=== PATIENT | female | born 1975 | race Caucasian/White ===

== ENCOUNTER 2022-03-01 09:35 | Emergency (ER) | payer BC, SELFPAY ==
[2022-03-01 09:50] VITALS: BP 112/72; PULSE 94; RESP 19; TEMP 36.8; O2SAT 99; BMI 50.2
[2022-03-01 10:25] LABS: Strep Scrn Group A (Rapid) Negative (Negative)
[2022-03-01 10:44] VITALS: BP 112/72; PULSE 94; RESP 19; TEMP 36.8; O2SAT 99
--- NOTE | 2022-03-01 10:48 | HMH.EDUTC ---
[facility] [place] Clinical Impression: Viral syndrome, Exposure to COVID-19 virus Disposition: Home, Self-Care Condition on Discharge: Good Instructions: Sore Throat, DI for COVID-19 (Suspected or Confirmed ), Preventing the Spread of Coronavirus Discharge Instructions Additional Instructions: *Monitor Temp, Over the counter Motrin or Tylenol as directed/as needed Tylenol every 4 hours and Motrin every 6 hours (as long as your family doctor has told you that you can take it) for fever or pain. and straight to ER if unable to lower temp less than 101.0 after medication given *Warm salt water gargles may help to soothe the throat *Throat Lozenges *Warm fluids like tea with honey may help to soothe the throat *Sleep elevated *Humidifier/Vaporizer Your throat swab was sent for culture. Those results are typically sent to your primary care. Be sure to follow up in 2-3 days with your family doctor/primary care physician if no improvement so they can review those result and treat if necessary. If you don?t have a primary care doctor, I recommend you get one but in the mean time, you will have to return to a walk in clinic Follow up IMMEDIATELY for new or worsening symptoms or no Noticeable improvement over the next 48-72 hours. 911 for difficulty breathing or swallowing You were tested for today for COVID19 your test result should be back in the next 24-48 hours, you may Check your results on the [facility] My health portal Make sure to take your Vitamins Vit. C Vit D and Zinc if you can take them Referrals: Provider,Referral, [Primary Care Provider] - As needed Forms: Work/School Release Time of Disposition: 10:58 Medical Decision Making - Rafal Inquiry Pt receiving controlled substance: No Rafal was queried for this patient: No Vital Signs: 03/01/22 09:50 03/01/22 10:44 Temperature 98.2 F 98.2 F Temperature Source Oral Pulse Rate 94 H Pulse Rate [Left Brachial] 94 H Respiratory Rate 19 19 Blood Pressure 112/72 Blood Pressure [Left Arm] 112/72 Blood Pressure Mean [Left Arm] 85 Blood Pressure Source [Left Arm] Automatic Cuff Blood Pressure Position [Left Arm] Sitting 02 Sat by Pulse Oximetry 99 Oxygen Delivery Method Room Air - Lab Data Lab results reviewed: Yes: I reviewed the patient's lab results. Lab Results 03/01/22 09:52: Group A Strep Rapid Negative Orders (Tests/Meds): ORDERS Category Date Time Status Covid-19 Nasal PCR ([facility]) Routine Lab 03/01/22 09:52 Received Strep Screen Confirmation Stat Micro 03/01/22 09:52 [place] [facility] [place] - General Stated complaint: sore throat, weakness, h/a, soa, chills Time Seen by Provider: 03/01/22 10:48 Mode of Arrival: Ambulatory Source of Information: Patient Limitations: No Limitations Description of Symptoms (Recalled from Triage Doc. by RN): PATIENT C/O COUGH, BODY ACHES, SOA, CONGESTION, CHILLS AND HEADACHE. NEEDS A COVID TEST FOR WORK HEENT Symptoms (Recalled from RN notes): Yes Resp Symptoms (Recalled from RN notes): Yes Skin Symptoms (Recalled from RN notes): No MS Symptoms (Recalled from RN notes): No Functional Status (Recalled from RN notes): WNL - History of Present Illness Provider Complaint: Patient states that she was recently around someone that was positive for COVID States that she has been having sore throat, body aches, and chills States that she wanted to come in and get tested for COVID and strep throat - Related Data Home Medications Medication Instructions Recorded Confirmed hydrochlorothiazide 25 mg tablet PO #30 tab 01/12/19 01/12/19 levothyroxine 75 mcg tablet PO #30 tab 01/12/19 01/12/19 lisinopril 5 mg tablet 5 mg PO DAILY 01/12/19 01/12/19 metformin 1,000 mg tablet PO #60 tab 01/12/19 01/12/19 Previous Rx's Medication Instructions Recorded Cefdinir [Omnicef 300mg Capsule] 300 mg PO BID #20 cap 01/16/19 Chlorhexidine Gluconate 237 ml TP BIDP PRN #240 ml 01/16/19 lidocaine HCL [Lidocaine viscous 5
== END 2022-03-01 11:00 | disposition home or self-care (01) ==
PROVIDERS: Emergency Provider Nurse Practitioner
DX: U07.1 COVID-19 (principal); J02.9 Acute pharyngitis, unspecified; R53.1 Weakness; R51.9 Headache, unspecified; R06.02 Shortness of breath; R50.9 Fever, unspecified
CPT/HCPCS: 87430; 99212; C9803; G0463; U0003; U0005

== ENCOUNTER 2022-07-20 07:23 | Inpatient (IN) | payer BC, SELFPAY ==
[2022-07-20] VITALS (25 sets, daily range): BP systolic 81–131; BP diastolic 43–88; PULSE 95–115; RESP 15–24; TEMP 36.8–43; O2SAT 93–100; BMI 47.3; BMI 21.7
--- NOTE | 2022-07-20 07:37 | PC.NURSE ---
Pt swabbed and specimen sent to lab
[2022-07-20 07:46] LABS: Coronavirus 19, PCR Not Detected (NotDetected); Influenza A, PCR Not Detected (NotDetected); Influenza B, PCR Not Detected (NotDetected)
--- NOTE | 2022-07-20 08:08 | HMH.EDGENADL ---
Discharge Plan Disposition Patient Disposition: Admitted As Inpatient Prescriptions Prescriptions: No Action levothyroxine 75 mcg tablet 75 mcg PO DAILY Qty: 30 hydrochlorothiazide 25 mg tablet 25 mg PO BID Qty: 30 metformin 500 mg tablet 500 mg PO BID Label Comments: TAKE ONE TABLET BY MOUTH TWICE DAILY lisinopril 10 mg tablet 10 mg PO DAILY Label Comments: TAKE ONE TABLET BY MOUTH EVERY DAY escitalopram oxalate 20 mg tablet 20 mg PO DAILY Label Comments: TAKE ONE TABLET BY MOUTH EVERY DAY levocetirizine 5 mg tablet 5 mg PO DAILY Label Comments: TAKE ONE TABLET BY MOUTH EVERY DAY Referrals Follow up/Referrals: Provider,Referral, MD [Primary Care Provider] - See instructions Clinical Impressions Clinical Impression: Cellulitis of groin, Sepsis Discharge ED Provider: Massimo Villaseñor General Adult HPI General Chief complaint: PAIN Stated complaint: Fatigue, vomitting, BA, possible cyst/boil Time Seen by Provider: 07/20/22 08:04 Mode of Arrival: Ambulatory Limitations: No Limitations Description of Symptoms (Recalled from ER Triage Doc. by RN): PT advises she has had a dry hacky cough, head and body aches, diarrhea and nausea since Saturday. Advises this is what she felt like when she had covid but worse. History of Present Illness HPI narrative: States that she has been sick since Saturday, 3 days ago. Started with body aches. She has scratchy throat, slight cough, vomiting and diarrhea, abdominal pain, subjective fever. States she has not able to hold anything down. Decreased urine output and is feeling dehydrated. Last vomiting this morning. States that she has not been able to get out of bed for 2 days, feels like when she had COVID, but worse. No known specific exposures. No flu vaccine this year. Related Data Home Medications Medication Instructions Recorded Confirmed hydrochlorothiazide 25 mg tablet 25 mg PO BID Fluid #30 tabs 01/12/19 07/20/22 levothyroxine 75 mcg tablet 75 mcg PO DAILY THYROID #30 tabs 01/12/19 07/20/22 escitalopram oxalate 20 mg tablet 20 mg PO DAILY MOOD 07/20/22 07/20/22 levocetirizine 5 mg tablet 5 mg PO DAILY Allergy symptoms 07/20/22 07/20/22 lisinopril 10 mg tablet 10 mg PO DAILY Hypertension 07/20/22 07/20/22 metformin 500 mg tablet 500 mg PO BID Diabetes 07/20/22 07/20/22 Allergies Allergy/AdvReac Type Severity Reaction Status Date / Time No Known Allergies Allergy Verified 07/20/22 07:34 [facility] Medical History (Updated 07/20/22 @ 12:46 by Massimo Villaseñor MD) Diabetes mellitus, type 2 Hypertension Social History Smoking Status: Never smoker alcohol intake: never substance use type: denies use current occupational status: other Travel in the last 8 weeks: None household members: family housing: house ROS Obtained: Yes Systems reviewed as appropriate & no additional complaints except as documented Constitutional Constitutional: Reports body ache, Reports fatigue, Reports fever(s) (subjective, temperature not taken), Reports headache(s) and Reports weakness ENT Ears, Nose, Mouth, and Throat: Reports headache(s) Respiratory Respiratory: Reports non-productive cough Gastrointestinal Gastrointestingal: Reports diarrhea, nausea and vomiting Genitourinary Female Genitourinary: Reports as per HPI Neurologic Neurologic: Reports headache(s) and Reports weakness Endocrine Endocrine: Reports fatigue Physical Exam General General appearance: alert and in no apparent distress Head Head exam: atraumatic and normocephalic Eye Eye exam: Absent conjunctival injection ENT ENT exam: Present normal oropharynx, mucous membranes moist and TM's normal bilaterally Neck Neck exam: Present normal inspection and full ROM Chest Chest inspection: Present normal inspection and symmetric chest wall rise Respiratory Respiratory exam: Absent r
[2022-07-20 08:40] LABS: Basophils # 0.1 K/mm3 (0-0.2); Basophils % 0.3 % (0.1-2.0); Eosinophils # 0.1 K/mm3 (0.0-0.4); Eosinophils % 0.5 % (0.1-12.0); Hematocrit 36.3 % (37.0-47.0); Hemoglobin 11.9 g/dL (12.2-16.2); Lymphocytes # 1.2 K/mm3 (0.7-4.5); Lymphocytes % 4.3 % (10-50); Mean Corpuscular HGB Conc 32.8 g/dL (31.8-35.4); Mean Corpuscular Hemoglobin 28.5 pg (27.0-31.2); Mean Corpuscular Volume 86.9 fl (81-99); Mean Platelet Volume 8.1 fl (7.4-10.4); Monocytes # 1.2 K/mm3 (0.1-1.0); Monocytes % 4.5 % (1.7-9.3); Neutrophils # 24.8 K/mm3 (1.8-7.8); Neutrophils % 90.4 % (37.0-80.0); Platelet Count 359 K/mm3 (142-424); Red Blood Count 4.18 M/mm3 (4.20-5.40); Red Cell Distribution Width 15.9 % (11.5-17.5); White Blood Count 27.5 K/mm3 (4.8-10.8)
[2022-07-20 08:44] LABS: Alanine Aminotransferase 19 U/L (12-78); Albumin Level 3.6 g/dl (3.5-5.0); Alkaline Phosphatase 207 U/L (38-126); Anion Gap 16.8 mEq/L (5-15); Aspartate Amino Transferase 26 U/L (14-36); Bilirubin,Total 0.8 mg/dl (0.2-1.3); Blood Urea Nitrogen 21 mg/dl (7-17); Calcium 8.9 mg/dl (8.4-10.2); Carbon Dioxide 28 mmol/L (22.0-30.0); Chloride 93 mmol/L (98-107); Creatinine Clearance Estimated 69 mL/min (50-200); Estimated Glomerular Filt Rate 53 ml/min (>60); GFR (African American) 65 ML/MIN (>60); Globulin 3.6 g/dL (1.3-3.2); Glucose 310 mg/dl (74-100); Potassium 3.8 mmoL/L (3.5-5.1); Sodium 134 mmol/L (136-145); Total Protein,Serum 7.2 g/dl (6.3-8.2)
[2022-07-20 09:11] LABS: MANUAL DIFFERENTIAL MANUAL DIFFERENTIAL (MANUAL DIFF)
[2022-07-20 09:22] LABS: Lymphocytes % 4 % (10-50); Monocytes % 6 % (2-9); Neutrophils % 90 % (42-76); Total Cells Counted 100
--- NOTE | 2022-07-20 09:22 | CT_ITS ---
FINAL REPORT TECHNIQUE: Postcontrast axial images through the abdomen and pelvis were performed. This study was performed with techniques to keep radiation doses as low as reasonably achievable, (ALARA). Individualized dose reduction techniques using automated exposure control or adjustment of mA and/or kV according to the patient's size were employed. CLINICAL HISTORY: lower abdo pain, vomiting, diarrhea, nausea FINDINGS: Abdomen: The lung bases are clear. There is mild fatty infiltration of the liver. The gallbladder is present. There is a tiny stone in the gallbladder. The spleen is unremarkable. The adrenals are normal. The pancreas is unremarkable. The kidneys enhance appropriately. The aorta is normal in caliber. No free fluid or adenopathy is identified. No findings for mechanical bowel obstruction are identified. Pelvis: The appendix is not identified. The uterus is present and lies a centric to the left. There is a benign-appearing cyst in the right ovary measuring 3.5 x 2.5 cm. There is extensive subcutaneous soft tissue edema and stranding in the left inguinal region and proximal left thigh of uncertain significance. There is lymph node in the left inguinal region measuring 2.8 x 1.4 cm. The urinary bladder is unremarkable. No free fluid, free fluid, or abscess is identified. IMPRESSION: Extensive subcutaneous soft tissue edema and stranding in the left inguinal region with associated left inguinal adenopathy. Mild fatty liver. Cholelithiasis. Reviewed, Interpreted and Dictated by Pedro Garcia MD Transcribed by Zena Raymond Authenticated and . [facility]
[2022-07-20 09:23] LABS: Platelet Estimate Normal; RBC Morphology Normal
--- NOTE | 2022-07-20 09:48 | PC.NURSE ---
pt returned from CT. Rounded at this time and updated on POC. Pt had no new needs and was agreeable with POC. Lab at bedside collecting BC and lactic acid.
[2022-07-20 10:26] LABS: Lactic Acid 1.3 mmol/L (0.7-2.1)
--- NOTE | 2022-07-20 10:34 | HMH.PHAINT1 ---
Pharmacy Intervention Comments: MEDICATION RECONCILIATION COMPLETED ON PATIENT USING EXTERNAL FILL HISTORY FROM PHARMACY. -MINI WHEELER, CAMD
[2022-07-20 10:41] LABS: Lipase 88 U/L (23-300)
--- NOTE | 2022-07-20 10:47 | PC.NURSE ---
rounded on pt at this advised we were waiting on CT results. Pt had no new needs at this time.
--- NOTE | 2022-07-20 10:55 | PC.NURSE ---
pt given a gown to change into
--- NOTE | 2022-07-20 11:04 | US_ITS ---
FINAL REPORT CLINICAL HISTORY: soft tissue infx, indurated mass L inguinal area FINDINGS: US EXTREMITY, NONVASCULAR, LIMITED, ANATOMIC SPECIFIC Limited sonographic images were obtained of the left inguinal region. There is soft tissue edema throughout the left inguinal region. There are a few ill-defined act hypoechoic areas that may represent complex fluid measuring up to 1 cm. There is a 2 cm lymph node that may be reactive. IMPRESSION: Ill-defined areas of complex fluid may represent developing micro abscesses. Reviewed, Interpreted and Dictated by Pedro Garcia MD Transcribed by Ish Gerber Authenticated and [facility]
--- NOTE | 2022-07-20 11:07 | PC.NURSE ---
Exam completed by MD with myself at the bedside, pt noted to have hard, misael area that is warm to the touch in the left groin area starting at the top and extending down to the bottom of her vagina.
--- NOTE | 2022-07-20 11:20 | PC.NURSE ---
notified pharmacy of vancomycin consult, spoke with remy
--- NOTE | 2022-07-20 12:04 | PC.NURSE ---
Pt to US
--- NOTE | 2022-07-20 12:30 | PC.NURSE ---
PT returned from US
--- NOTE | 2022-07-20 12:35 | PC.NURSE ---
speaking with hospitalist
--- NOTE | 2022-07-20 12:40 | PC.NURSE ---
Notified care management of admission
--- NOTE | 2022-07-20 12:41 | PC.NURSE ---
Updated pt on POC and that she was going to be admitted. Pt agreeable with POC and had no new needs at this time
--- NOTE | 2022-07-20 12:41 | PC.NURSE ---
waiting data integration analyst back from dr. monteiro r/t consult on pt. spoke with bj in surgery office
--- NOTE | 2022-07-20 12:42 | PC.NURSE ---
speaking with Dr. Tan
--- NOTE | 2022-07-20 12:51 | PC.NURSE ---
dr. monteiro at BS
--- NOTE | 2022-07-20 12:55 | PC.NURSE ---
Dr. Tan and myself at bedside to examine pt. Dr. Tan advised he was going to take the pt on up to surgery. Called pre-op and notified them pt would be coming up.
--- NOTE | 2022-07-20 13:02 | EXP.SURG.CON ---
History of Present Illness *Admission Date: 07/20/22 *Reason for visit:: Left groin cellulitis/abscess *History of present illness: This is a 46-year-old female seen in consultation from the emergency department for evaluation regarding left groin cellulitis/abscess. Please see HPI from emergency department evaluation forwarded below. Forwarded for emergency department evaluation: General Adult HPI General Chief complaint: PAIN Stated complaint: Fatigue, vomitting, BA, possible cyst/boil Time Seen by Provider: 07/20/22 08:04 Mode of Arrival: Ambulatory Limitations: No Limitations Description of Symptoms (Recalled from ER Triage Doc. by RN): PT advises she has had a dry hacky cough, head and body aches, diarrhea and nausea since Saturday. Advises this is what she felt like when she had covid but worse. History of Present Illness HPI narrative: States that she has been sick since Saturday, 3 days ago.? Started with body aches.? She has scratchy throat, slight cough, vomiting and diarrhea, abdominal pain, subjective fever.? States she has not able to hold anything down.? Decreased urine output and is feeling dehydrated.? Last vomiting this morning.? States that she has not been able to get out of bed for 2 days, feels like when she had COVID, but worse.? No known specific exposures.? No flu vaccine this year. PFSH PFS Medical History (Updated 07/20/22 @ 13:07 by Nicholas Tan MD) Diabetes mellitus, type 2 Hypertension Social History Smoking Status: Never smoker alcohol intake: never substance use type: denies use current occupational status: other Travel in the last 8 weeks: None household members: family housing: house Review of Systems Constitutional Constitutional: Reports headache(s) and Reports weakness ENT Ears, Nose, Mouth, and Throat: Reports headache(s) *Neurologic Neurologic: Reports headache(s) and Reports weakness Meds Home Medications and Allergies Home Medications Medication Instructions Recorded Confirmed Type hydrochlorothiazide 25 mg tablet 25 mg PO BID Fluid #30 tabs 01/12/19 07/20/22 History levothyroxine 75 mcg tablet 75 mcg PO DAILY THYROID #30 tabs 01/12/19 07/20/22 History escitalopram oxalate 20 mg tablet 20 mg PO DAILY MOOD 07/20/22 07/20/22 History levocetirizine 5 mg tablet 5 mg PO DAILY Allergy symptoms 07/20/22 07/20/22 History lisinopril 10 mg tablet 10 mg PO DAILY Hypertension 07/20/22 07/20/22 History metformin 500 mg tablet 500 mg PO BID Diabetes 07/20/22 07/20/22 History New Prescriptions to Start Prescriptions: Allergies Allergy/AdvReac Type Severity Reaction Status Date / Time No Known Allergies Allergy Verified 07/20/22 07:34 Exam (Inpt) Vital signs and Labs for Last 24 Hours: Temp Pulse Resp BP Pulse Ox 98.2 F 98 H 16 119/70 99 07/20/22 07:24 07/20/22 10:24 07/20/22 07:24 07/20/22 10:24 07/20/22 10:24 Laboratory Results - last 24 hr 07/20/22 07:32: SARS-CoV-2 (PCR) Not detected, Influenza A Untype (PCR) Not detected, Influenza Type B (PCR) Not detected 07/20/22 08:17: WBC 27.5 H*, RBC 4.18 L, Hgb 11.9 L, Hct 36.3 L, MCV 86.9, MCH 28.5, MCHC 32.8, RDW 15.9, Plt Count 359, MPV 8.1, Neut % (Auto) 90.4 H, Lymph % (Auto) 4.3 L, [place] % (Auto) 4.5, Eos % (Auto) 0.5, Baso % (Auto) 0.3, Neut # (Auto) 24.8 H, Lymph # (Auto) 1.2, [place] # (Auto) 1.2 H, Eos # (Auto) 0.1, Baso # (Auto) 0.1, Total Counted 100, Neutrophils % (Manual) 90 H, Lymphocytes % (Manual) 4 L, Monocytes % (Manual) 6, Platelet Estimate Normal, RBC Morphology Normal 07/20/22 08:17: Sodium 134 L, Potassium 3.8, Chloride 93 L, Carbon Dioxide 28, Anion Gap 16.8 H, BUN 21 H, Creatinine 1.10 H, Estimated Creat Clear 69, Estimated GFR 53 L, Est GFR ( Amer) 65, Glucose 310 H, Calcium 8.9, Total Rajat
--- NOTE | 2022-07-20 13:03 | PC.NURSE ---
Surgery staff at bedside. Report given to GIOVANY Espinoza PT to preop at this time.
--- NOTE | 2022-07-20 13:13 | P.PN_ITS ---
[facility] Medical History Diabetes mellitus, type 2 Hypertension Social History Smoking Status: Never smoker alcohol intake: never substance use type: denies use current occupational status: other Travel in the last 8 weeks: None household members: family housing: house [facility] Anesthesia Checklist Patient Identification Patient Identification: Arm Band and Verbal (Name & ) Structural Data Admitted From: Emergency Dept Planned Operative Procedure/s: I & D groin Consent for Planned Operative Procedure(s) Verified: Yes NPO Status Verified Time NPO: 00:00 Chart Verification Results Verified: CBC and BMP Airway Assessment C-Spine Mobility Assessed: Yes TMJ Mobility Assessed: Yes Dentition: Poor Dentition Neurological Assessment Level of Consciousness: Awake Hx Seizures: No Numbness or tingling in extremities: No Anesthesia Plan Anesthesia Risk discussed: Yes Anesthesia Plan: Verified ASA Class: III Anesthesia Type: General
--- NOTE | 2022-07-20 13:24 | EXP.PHA.CONS ---
Pharmacy Consult Date: 07/20/22 Time: 13:24 Referring provider: DR. CEVALLOS Reason for Consult:: VANCOMYCIN DOSING Allergies Allergy/AdvReac Type Severity Reaction Status Date / Time No Known Allergies Allergy Verified 07/20/22 07:34 Home Medications Medication Instructions Recorded Confirmed Type hydrochlorothiazide 25 mg tablet 25 mg PO BID Fluid #30 tabs 01/12/19 07/20/22 History levothyroxine 75 mcg tablet 75 mcg PO DAILY THYROID #30 tabs 01/12/19 07/20/22 History escitalopram oxalate 20 mg tablet 20 mg PO DAILY MOOD 07/20/22 07/20/22 History levocetirizine 5 mg tablet 5 mg PO DAILY Allergy symptoms 07/20/22 07/20/22 History lisinopril 10 mg tablet 10 mg PO DAILY Hypertension 07/20/22 07/20/22 History metformin 500 mg tablet 500 mg PO BID Diabetes 07/20/22 07/20/22 History New Prescriptions to Start Prescriptions: Height: 1.78 m Weight: 149.685 kg Laboratory Results:: Laboratory Results - last 24 hr 07/20/22 07:32: SARS-CoV-2 (PCR) Not detected, Influenza A Untype (PCR) Not detected, Influenza Type B (PCR) Not detected 07/20/22 08:17: WBC 27.5 H*, RBC 4.18 L, Hgb 11.9 L, Hct 36.3 L, MCV 86.9, MCH 28.5, MCHC 32.8, RDW 15.9, Plt Count 359, MPV 8.1, Neut % (Auto) 90.4 H, Lymph % (Auto) 4.3 L, [place] % (Auto) 4.5, Eos % (Auto) 0.5, Baso % (Auto) 0.3, Neut # (Auto) 24.8 H, Lymph # (Auto) 1.2, [place] # (Auto) 1.2 H, Eos # (Auto) 0.1, Baso # (Auto) 0.1, Total Counted 100, Neutrophils % (Manual) 90 H, Lymphocytes % (Manual) 4 L, Monocytes % (Manual) 6, Platelet Estimate Normal, RBC Morphology Normal 07/20/22 08:17: Sodium 134 L, Potassium 3.8, Chloride 93 L, Carbon Dioxide 28, Anion Gap 16.8 H, BUN 21 H, Creatinine 1.10 H, Estimated Creat Clear 69, Estimated GFR 53 L, Est GFR ( Amer) 65, Glucose 310 H, Calcium 8.9, Total Bilirubin 0.8, AST 26, ALT 19, Alkaline Phosphatase 207 H, Total Protein 7.2, Albumin 3.6, Globulin 3.6 H, Albumin/Globulin Ratio 1.0 L 07/20/22 08:17: Lipase 88 07/20/22 09:55: Lactate 1.3 Medical History: Medical History (Updated 07/20/22 @ 13:07 by Nicholas Tan MD) Diabetes mellitus, type 2 Hypertension Assessment and Plan Assessment and plan all Dx Assessment and Plan for all problems:: Pharmacokinetic dosing service Objective: Patient: Floor: Age: 46 yo Serum creatinine: 1.10 mg/dL Height: 70.1 Inches Weight (kg): 150 Assessment: IBW (kg): 68.73 Dosing wt(kg): 150 Estimated Creatinine clearance (ml/min): 69.3 CRCL method: Cockcroft and Gault using ibw(default). Drug selected: Vancomycin Loading dose (mg): Vd (liters): 120.0 (factor used: 0.8 L/kg) Neo (hr-1): 0.062 Half life (hrs): 11.18 CLvanco=?? 7.440 L/hr Recommended dose: 2000 mg Interval: 12 hrs Infusion time (hrs): 2.0 Predicted peak (mcg/mL): 29.9 Predicted trough (mcg/mL): 16.08 Total body weight is being used for vancomycin dosing. Recommendations: Give Vancomycin 2000 mg q 12 hrs with an expected Cpeak of 29.9 mcg/ml and an expected Ctrough of 16.08 mcg/ml AUC 0-24 /MASSIMO Data: MASSIMO 0.5 mcg/mL:?? AUC/MASSIMO:? 1075.3 MASSIMO 1.0 mcg/mL:?? AUC/MASSIMO:? 537.6 --------- MASSIMO 1.5 mcg/mL:?? AUC/MASSIMO:? 358.4 MASSIMO 2.0 mcg/mL:?? AUC/MASSIMO:? 268.8 Thank you for the consult, will continue to follow. -MINI WHEELER, CAMD
--- NOTE | 2022-07-20 14:03 | EXP.OP.NOTE ---
Date of procedure: 07/20/22 Pre-op Diagnosis:: Left groin abscess Post-op Diagnosis:: Abscess of left groin, labia, and medial buttock Procedure performed:: Incision or drainage of left groin/labia/medial buttock abscess Surgeon:: Nicholas Tan MD CLINICAL RESEARCH MANAGEMENT ASSOCIATE:: Gil Higgins Anesthesia: local and LMA Estimated blood loss (mL): 25 Operative findings:: Large complex abscess of left groin with secondary projection to lateral labial tissue Complex left medial buttock/thigh margin abscess Operative note:: After informed consent was obtained the patient was taken to the operating room and placed in the supine position. General anesthesia with laryngeal mask airway was achieved. Her left groin and buttock region were prepped and draped in a sterile fashion. Electrocautery was utilized to resect a central portion of skin overlying the left medial buttock/thigh margin abscess. Purulent fluid was immediately encountered. Fluid was obtained for gram stain/culture and the complex pocket of purulence was then evacuated. The wound was packed with Kerlix. Attention was then turned to the large groin/inguinal region abscess. Electrocautery was utilized to resect an ellipse of tissue along the central left groin/inguinal region. A large complex pocket of purulence was encountered. Counterincision superior and inferior to this site were made in a similar manner. The entire cavity was packed with dry Kerlix. Finally, attention was turned to an area of induration and swelling along the lateral margin of the left labia. An ellipse of tissue was resected with electrocautery and the underlying tissue was evacuated and then packed with Kerlix. Dressings were applied over all 5 sites and the patient was then transferred to recovery after anesthetic agents were reversed. Condition: stable Disposition: PACU Specimens:: Fluid for gram stain/culture Complications:: No immediate
--- NOTE | 2022-07-20 14:16 | EXP.ANES.I ---
[facility] Anesthesia Record Part I Anesthesia Record I Intake, IV Amount: 50 Estimated blood loss (mL): 5 Urine output (mL): 0 Blood Pressure: 123/76 SaO2: 93 Pulse Rate: 115 Respiratory Rate: 15 Temperature: 98.9 F Patient is:: Drowsy Stable to PACU at:: 14:10
[2022-07-20 14:26] LABS: POC Glucose,Bedside 249 (70-110)
--- NOTE | 2022-07-20 14:31 | SUR.PHASEI ---
late entry 1418 BS obtained with result of Sonal Higgins CRNA notified. No new orders given at this time.
--- NOTE | 2022-07-20 14:37 | SUR.PHASEI ---
1432 Ben Higgins CRNA notified of oral temperature is 100.6. Acetaminophen 500mg PO once order by Ben Higgins CRNA.
--- NOTE | 2022-07-20 14:57 | SUR.PHASEI ---
1446 called and gave detailed report to Norris Choudhury RN [id number] transported via stretcher to med/surg room. vital signs stable. denies pain at this time. left in stable condition with Norris Choudhury RN at bedside
--- NOTE | 2022-07-20 15:41 | PC.NURSE ---
pt arrived to floor via stretcher @ 15:20
--- NOTE | 2022-07-20 15:43 | PC.NURSE ---
Pt arrived to floor via stretcher @ 13:05
--- NOTE | 2022-07-20 16:18 | EXP.HP ---
History of Present Illness *Admission Date: 07/20/22 *Reason for visit:: Abdominal pain, nausea *History of present illness: Ms. Cohn is a 46-year-old female who presented to the ER today due to concern for flulike/COVID-like symptoms. States she is had body aches, headache, diarrhea and a cough. Chills and nausea as well. Denies any blood in her stool, chest pain, confusion. Symptoms of been going on for 3 days. Began with body aches. Having a hard time holding food down and feels dehydrated. On arrival to the ER evaluation showed labs with marked leukocytosis. Exam positive for cellulitis of lower abdomen. Patient met criteria for sepsis with tachycardia, leukocytosis, infectious etiology. Started on broad-spectrum antibiotics. Surgery consulted for abscess evaluation. Medicine was consulted for admission. Patient evaluated after arriving to the floor. Surgery took her to the OR for I&D where they found significant purulent material not seen on CT abdomen pelvis. Fairly large abscess left buttock with dark purulent drainage. Patient most comfortable laying on her left side at this time. Requesting something for pain as the incisions are sore. Denies history of previous abscesses, MRSA infections. States she had soreness on her left buttock but was not sure what it was from. [facility] Medical History (Updated 07/20/22 @ 16:34 by Jim Das MD) Diabetes mellitus, type 2 Hypertension Social History Smoking Status: Never smoker alcohol intake: never substance use type: denies use current occupational status: other Travel in the last 8 weeks: None household members: family housing: house Review of Systems Review of Systems Review of systems (narrative): 14 point review of systems performed, pertinent positives and negatives as per HPI Constitutional Constitutional: Reports headache(s) and Reports weakness ENT Ears, Nose, Mouth, and Throat: Reports headache(s) *Neurologic Neurologic: Reports headache(s) and Reports weakness Meds Home Medications and Allergies Home Medications Medication Instructions Recorded Confirmed Type hydrochlorothiazide 25 mg tablet 25 mg PO BID Fluid #30 tabs 01/12/19 07/20/22 History levothyroxine 75 mcg tablet 75 mcg PO DAILY THYROID #30 tabs 01/12/19 07/20/22 History escitalopram oxalate 20 mg tablet 20 mg PO DAILY MOOD 07/20/22 07/20/22 History levocetirizine 5 mg tablet 5 mg PO DAILY Allergy symptoms 07/20/22 07/20/22 History lisinopril 10 mg tablet 10 mg PO DAILY Hypertension 07/20/22 07/20/22 History metformin 500 mg tablet 500 mg PO BID Diabetes 07/20/22 07/20/22 History New Prescriptions to Start Prescriptions: Allergies Allergy/AdvReac Type Severity Reaction Status Date / Time No Known Allergies Allergy Verified 07/20/22 07:34 Exam Data for Last 24 hours Vital signs and Labs for Last 24 Hours: Temp Pulse Resp BP Pulse Ox 100.4 F H 110 H 19 109/66 L 95 07/20/22 14:50 07/20/22 14:50 07/20/22 14:50 07/20/22 14:50 07/20/22 14:50 Laboratory Results - last 24 hr 07/20/22 07:32: SARS-CoV-2 (PCR) Not detected, Influenza A Untype (PCR) Not detected, Influenza Type B (PCR) Not detected 07/20/22 08:17: WBC 27.5 H*, RBC 4.18 L, Hgb 11.9 L, Hct 36.3 L, MCV 86.9, MCH 28.5, MCHC 32.8, RDW 15.9, Plt Count 359, MPV 8.1, Neut % (Auto) 90.4 H, Lymph % (Auto) 4.3 L, [place] % (Auto) 4.5, Eos % (Auto) 0.5, Baso % (Auto) 0.3, Neut # (Auto) 24.8 H, Lymph # (Auto) 1.2, [place] # (Auto) 1.2 H, Eos # (Auto) 0.1, Baso # (Auto) 0.1, Total Counted 100, Neutrophils % (Manual) 90 H, Lymphocytes % (Manual) 4 L, Monocytes % (Manual) 6, Platelet Estimate Normal, RBC Morphology Normal 07/20/22 08:17: Sodium 134 L, Potassium 3.8, Chloride 93 L, Carbon Dioxide 28, Anion Gap 16.8 H, BUN 21 H, Creatinine 1.10 H, Estimated Creat Clear 69, Estimated GFR 53 L, Est GFR ( Amer) 65, Glucose 310 H, Calcium 8.9, Total Bilirubin 0.
[2022-07-20 16:21] LABS: POC Glucose,Bedside 289 (70-110)
[2022-07-20 17:23] LABS: Hemoglobin A1C 10.9 % (4.0-6.0)
--- NOTE | 2022-07-20 17:41 | EXP.ANES.II ---
[facility] Anesthesia Record Part II Anesthesia Record Part II Discharge Time: 14:50 Destination: Surgical Day Care (OP Surgery) PACU nurse assessment reviewed?: Yes Patient Condition:: Good Anesthesia Complications:: None Swallowing reflex intact?: Yes Cyanosis?: No Blood Pressure: 109/66 Pulse Rate: 110 Temperature: 100.4 F Mental Status: Alert & Oriented Pain level:: 0 Nausea and/or vomitting:: None Intake, IV Amount: 0
[2022-07-20 20:57] LABS: POC Glucose,Bedside 222 (70-110)
[2022-07-21 05:00] VITALS: BMI 48.5
--- NOTE | 2022-07-21 05:17 | PC.NURSE ---
previous weight was entered incorrectly, Nurse Notified.
--- NOTE | 2022-07-21 06:16 | PC.NURSE ---
Pt has c/o pain x2 this shift. Favorable results of PRN meds per pt. No other acute changes or complaints.
[2022-07-21 06:33] LABS: POC Glucose,Bedside 213 (70-110)
--- NOTE | 2022-07-21 07:35 | EXP.ACUTE.PN ---
Subjective *Date: 07/21/22 *Time: 11:55 Interval history: Patient stable overnight. Remains afebrile. Hemodynamically stable. No shortness of breath, chest pain, nausea, vomiting. No bowel movement since admission. Pain tolerable with current pain regimen. Dressings saturated with serosanguineous drainage. Patient continues to lay on her right side as this is most comfortable. Blood sugars have remained elevated, labs reviewed with an elevated A1c greater than 10. Reports she has not seen a doctor for follow-up/routine visits in a while. Has only been on oral diabetes treatment, does not check her blood sugars. Medical Exam Vital signs and Labs for Last 24 Hours: Vital Signs Temp Pulse Pulse Resp BP BP Pulse Ox 07/20/22 21:35 98.8 F 103 H 17 96/45 L 100 07/20/22 20:35 98.9 F 104 H 17 96/50 L 100 07/20/22 20:00 100 07/20/22 19:35 99.0 F 105 H 17 111/65 100 07/20/22 17:05 98.9 F 105 H 17 94/43 L 95 07/20/22 16:35 99.2 F 104 H 16 81/45 L 95 07/20/22 16:05 99.9 F H 109 H 18 104/50 L 97 07/20/22 15:50 99.9 F H 109 H 18 96/48 L 97 07/20/22 15:35 99.9 F H 109 H 19 97/56 L 97 07/20/22 15:20 99.9 F H 111 H 18 101/55 L 97 07/20/22 17:35 98.9 F 102 H 17 103/47 L 95 07/20/22 15:05 100.5 F H 110 H 18 105/54 L 98 07/20/22 14:30 109 H 22 109/68 L 94 L 07/20/22 14:20 109 H 22 129/66 95 07/20/22 14:50 100.4 F H 110 H 19 109/66 L 95 07/20/22 14:40 110 H 24 120/71 93 L 07/20/22 14:10 98.8 F 115 H 15 123/76 93 L 07/20/22 13:04 98.9 F 95 H 16 122/70 07/20/22 10:24 98 H 119/70 99 07/20/22 08:05 106 H 124/82 97 07/20/22 17:42 100.4 F H 110 H 109/66 L 07/20/22 14:16 98.9 F 115 H 15 123/76 Intake and Output 07/20/22 07/20/22 07/21/22 15:59 23:59 07:59 Intake Total 50 / 730 560 / 730 570 / 570 Output Total 0 / 0 Balance 50 / 730 560 / 730 570 / 570 Intake: Intake, Oral Amount 360 / 480 120 / 120 Intake, Total IV Amount 50 / 250 200 / 250 450 / 450 Cefepime HCl 2 gm In 0.9 % 100 / 100 100 / 100 Sodium Chloride 100 ml @ 100 mls/hr IV Q12H [facility] Rx#:[id number] Metronidaz/Sod Chl 500 mg In 100 / 100 100 / 100 100 ml @ 100 mls/hr IV Q8H [facility] Rx#:[id number] Vancomycin HCl 2,000 mg In 0.9 250 / 250 % Sodium Chloride 250 ml @ 125 mls/hr IV Q12H [facility] Rx#:[id number] Output: Output, Urine Amount 0 / 0 Other: Number of Unmeasured Voids 1 Weight 68.663 kg 153.91 kg Patient Weight 07/21/22 23:59 Weight 153.91 kg Laboratory Results - last 24 hr 07/20/22 07:32: SARS-CoV-2 (PCR) Not detected, Influenza A Untype (PCR) Not detected, Influenza Type B (PCR) Not detected 07/20/22 08:17: WBC 27.5 H*, RBC 4.18 L, Hgb 11.9 L, Hct 36.3 L, MCV 86.9, MCH 28.5, MCHC 32.8, RDW 15.9, Plt Count 359, MPV 8.1, Neut % (Auto) 90.4 H, Lymph % (Auto) 4.3 L, [place] % (Auto) 4.5, Eos % (Auto) 0.5, Baso % (Auto) 0.3, Neut # (Auto) 24.8 H, Lymph # (Auto) 1.2, [place] # (Auto) 1.2 H, Eos # (Auto) 0.1, Baso # (Auto) 0.1, Total Counted 100, Neutrophils % (Manual) 90 H, Lymphocytes % (Manual) 4 L, Monocytes % (Manual) 6, Platelet Estimate Normal, RBC Morphology Normal 07/20/22 08:17: Sodium 134 L, Potassium 3.8, Chloride 93 L, Carbon Dioxide 28, Anion Gap 16.8 H, BUN 21 H, Creatinine 1.10 H, Estimated Creat Clear 69, Estimated GFR 53 L, Est GFR ( Amer) 65, Glucose 310 H, Calcium 8.9, Total Bilirubin 0.8, AST 26, ALT 19, Alkaline Phosphatase 207 H, Total Protein 7.2, Albumin 3.6, Globulin 3.6 H, Albumin/Globulin Ratio 1.0 L 07/20/22 08:17: Lipase 88 07/20/22 08:17: Hemoglobin A1c 10.9 H 07/20/22 09:55: Lactate 1.3 07/20/22 14:18: POC Glucose 249 H 07/20/22 16:09: POC Glucose 289 H 07/20/22 20:19: POC Glucose 222 H 07/21/22 06:23: POC Glucose 213 H I & O for Labs for Last 24 Hours: Intake & Output 07/18/22 07/19/22 07/20/22
[2022-07-21 08:00] VITALS: BP 112/84; PULSE 88; RESP 16; TEMP 36.9; O2SAT 100; O2SAT 93
[2022-07-21 08:04] LABS: Basophils # 0.1 K/mm3 (0-0.2); Basophils % 0.4 % (0.1-2.0); Eosinophils # 0.1 K/mm3 (0.0-0.4); Eosinophils % 0.5 % (0.1-12.0); Hematocrit 33.3 % (37.0-47.0); Hemoglobin 10.8 g/dL (12.2-16.2); Lymphocytes # 1.4 K/mm3 (0.7-4.5); Lymphocytes % 6.2 % (10-50); Mean Corpuscular HGB Conc 32.4 g/dL (31.8-35.4); Mean Corpuscular Hemoglobin 28.2 pg (27.0-31.2); Mean Corpuscular Volume 87.1 fl (81-99); Mean Platelet Volume 8.3 fl (7.4-10.4); Monocytes # 1.2 K/mm3 (0.1-1.0); Neutrophils % 87.7 % (37.0-80.0); Platelet Count 327 K/mm3 (142-424); Red Blood Count 3.83 M/mm3 (4.20-5.40); Red Cell Distribution Width 15.8 % (11.5-17.5); White Blood Count 22.8 K/mm3 (4.8-10.8)
[2022-07-21 08:05] LABS: Alanine Aminotransferase 18 U/L (12-78); Albumin Level 3.1 g/dl (3.5-5.0); Albumin/Globulin Ratio 0.9 (1.1-1.8); Alkaline Phosphatase 177 U/L (38-126); Anion Gap 16.2 mEq/L (5-15); Aspartate Amino Transferase 24 U/L (14-36); Bilirubin,Total 0.6 mg/dl (0.2-1.3); Blood Urea Nitrogen 23 mg/dl (7-17); Calcium 8.1 mg/dl (8.4-10.2); Carbon Dioxide 25 mmol/L (22.0-30.0); Chloride 98 mmol/L (98-107); Creatinine Clearance Estimated 54 mL/min (50-200); Estimated Glomerular Filt Rate 40 ml/min (>60); GFR (African American) 49 ML/MIN (>60); Globulin 3.3 g/dL (1.3-3.2); Glucose 196 mg/dl (74-100); Magnesium 1.8 mg/dl (1.6-2.3); Potassium 3.2 mmoL/L (3.5-5.1); Sodium 136 mmol/L (136-145); Total Protein,Serum 6.4 g/dl (6.3-8.2)
[2022-07-21 08:09] LABS: MANUAL DIFFERENTIAL MANUAL DIFFERENTIAL (MANUAL DIFF)
[2022-07-21 08:52] LABS: Lymphocytes % 8 % (10-50); Monocytes % 8 % (2-9); Neutrophils % 84 % (42-76); Platelet Estimate Normal; RBC Morphology Normal; Total Cells Counted 100
--- NOTE | 2022-07-21 09:58 | EXP.SURG.PN ---
Subjective Patient reports: no new complaints and feels better Exam Data for Last 24 hours Vital signs and Labs for Last 24 Hours: Temp Pulse Resp BP Pulse Ox 98.4 F 88 16 112/84 93 L 07/21/22 08:00 07/21/22 08:00 07/21/22 08:00 07/21/22 08:00 07/21/22 08:00 Laboratory Results - last 24 hr 07/20/22 08:17: Lipase 88 07/20/22 08:17: Hemoglobin A1c 10.9 H 07/20/22 09:55: Lactate 1.3 07/20/22 14:18: POC Glucose 249 H 07/20/22 16:09: POC Glucose 289 H 07/20/22 20:19: POC Glucose 222 H 07/21/22 06:23: POC Glucose 213 H 07/21/22 07:00: WBC 22.8 H*, RBC 3.83 L, Hgb 10.8 L, Hct 33.3 L, MCV 87.1, MCH 28.2, MCHC 32.4, RDW 15.8, Plt Count 327, MPV 8.3, Neut % (Auto) 87.7 H, Lymph % (Auto) 6.2 L, [place] % (Auto) 5.0, Eos % (Auto) 0.5, Baso % (Auto) 0.4, Neut # (Auto) 20.0 H, Lymph # (Auto) 1.4, [place] # (Auto) 1.2 H, Eos # (Auto) 0.1, Baso # (Auto) 0.1, Total Counted 100, Neutrophils % (Manual) 84 H, Lymphocytes % (Manual) 8 L, Monocytes % (Manual) 8, Platelet Estimate Normal, RBC Morphology Normal 07/21/22 07:00: Sodium 136, Potassium 3.2 L, Chloride 98, Carbon Dioxide 25, Anion Gap 16.2 H, BUN 23 H, Creatinine 1.40 H D, Estimated Creat Clear 54, Estimated GFR 40 L, Est GFR ( Amer) 49 L D, Glucose 196 H D, Calcium 8.1 L, Magnesium 1.8, Total Bilirubin 0.6, AST 24, ALT 18, Alkaline Phosphatase 177 H, Total Protein 6.4, Albumin 3.1 L D, Globulin 3.3 H, Albumin/Globulin Ratio 0.9 L I & O for Last 24 hours: Intake & Output 07/18/22 07/19/22 07/20/22 07/21/22 11:59 11:59 11:59 11:59 Intake Total 1420 / 1420 Output Total 0 / 0 Balance 1420 / 1420 Weight 330 lb 339 lb 5 oz Constitutional Constitutional: no acute distress *Routine Respiratory Exam Respiratory: Absent respiratory distress *Routine Cardiovascular Exam Cardiovascular: Absent tachycardia *Routine Abdominal Exam Comments: Dressings in place. No spreading cellulitis. Progress Note: A&P Assessment and plan (1) Abscess of left groin: Status: Acute Assessment and plan: Overall, doing well status post incision and drainage. Continue antibiotics as per primary service Dressing changes (2) Cellulitis of groin: Status: Acute Assessment and plan: Continue antibiotics as per primary service
[2022-07-21 12:00] VITALS: BP 110/50; PULSE 82; RESP 16; TEMP 36.6; O2SAT 96
[2022-07-21 16:00] VITALS: BP 97/60; PULSE 81; RESP 16; TEMP 36.7; O2SAT 98
--- NOTE | 2022-07-21 17:22 | PC.NURSE ---
pt has done well this shift. has ambulated in room and to bathroom and tolerated well. dsg was changed per md order (packed with dry kerlex) and pt tolerated this well. was pre-medicated with prn [place] and received prn IV morphine after procedure was completed. she is currently sitting up on the side of the bed eating, she has tolerated her diet well. she has not had a bm this shift but has been passing flatus.
[2022-07-21 19:44] LABS: POC Glucose,Bedside 186 (70-110)
[2022-07-21 19:44] LABS: POC Glucose,Bedside 159 (70-110)
[2022-07-21 20:00] VITALS: BP 117/75; PULSE 75; RESP 20; TEMP 36.8; O2SAT 95; O2SAT 99
[2022-07-21 20:17] VITALS: BP 112/69; PULSE 85; RESP 18; TEMP 37.1; O2SAT 99
--- NOTE | 2022-07-21 21:00 | PC.NURSE ---
2100 wound dressing changed, old packing removed, pt tolerated well, left groin area dressings noted with tunneling, packed with kerlix and covered with abd and washcloths for drainage, perineum and left wound under buttock packed with kerlix, pt tolerated well and was pre-medicated with morphine as prescribed, noted moderated amount of purulent drainage on old dressings.
[2022-07-21 22:30] LABS: POC Glucose,Bedside 223 (70-110)
[2022-07-21 23:19] VITALS: BP 89/62; PULSE 69; RESP 18; TEMP 36.7; O2SAT 95
[2022-07-22 04:00] VITALS: BP 102/56; PULSE 74; RESP 16; TEMP 36.7; O2SAT 100
[2022-07-22 05:00] VITALS: BMI 47.7
[2022-07-22 06:10] LABS: POC Glucose,Bedside 172 (70-110)
[2022-07-22 08:00] VITALS: BP 96/66; PULSE 73; RESP 18; TEMP 36.4; O2SAT 100; O2SAT 99
[2022-07-22 08:05] LABS: Basophils # 0.1 K/mm3 (0-0.2); Basophils % 0.4 % (0.1-2.0); Eosinophils # 0.2 K/mm3 (0.0-0.4); Eosinophils % 1.4 % (0.1-12.0); Hematocrit 33.2 % (37.0-47.0); Hemoglobin 10.9 g/dL (12.2-16.2); Lymphocytes # 1.3 K/mm3 (0.7-4.5); Lymphocytes % 7.8 % (10-50); Mean Corpuscular HGB Conc 32.8 g/dL (31.8-35.4); Mean Corpuscular Hemoglobin 28.4 pg (27.0-31.2); Mean Corpuscular Volume 86.5 fl (81-99); Mean Platelet Volume 8.2 fl (7.4-10.4); Monocytes # 0.7 K/mm3 (0.1-1.0); Monocytes % 3.9 % (1.7-9.3); Neutrophils # 14.5 K/mm3 (1.8-7.8); Neutrophils % 86.5 % (37.0-80.0); Platelet Count 393 K/mm3 (142-424); Red Blood Count 3.84 M/mm3 (4.20-5.40); Red Cell Distribution Width 15.8 % (11.5-17.5); White Blood Count 16.7 K/mm3 (4.8-10.8)
[2022-07-22 08:09] LABS: MANUAL DIFFERENTIAL MANUAL DIFFERENTIAL (MANUAL DIFF)
[2022-07-22 08:17] LABS: Alanine Aminotransferase 22 U/L (12-78); Albumin/Globulin Ratio 0.9 (1.1-1.8); Alkaline Phosphatase 158 U/L (38-126); Anion Gap 14.3 mEq/L (5-15); Aspartate Amino Transferase 35 U/L (14-36); Bilirubin,Total 0.3 mg/dl (0.2-1.3); Blood Urea Nitrogen 25 mg/dl (7-17); Calcium 8.3 mg/dl (8.4-10.2); Carbon Dioxide 27 mmol/L (22.0-30.0); Chloride 100 mmol/L (98-107); Creatinine Clearance Estimated 63 mL/min (50-200); Estimated Glomerular Filt Rate 48 ml/min (>60); GFR (African American) 59 ML/MIN (>60); Globulin 3.3 g/dL (1.3-3.2); Glucose 178 mg/dl (74-100); Potassium 3.3 mmoL/L (3.5-5.1); Sodium 138 mmol/L (136-145); Total Protein,Serum 6.3 g/dl (6.3-8.2)
[2022-07-22 08:43] VITALS: BMI 47.6
--- NOTE | 2022-07-22 10:33 | P.PN_ITS ---
Subjective Patient reports: no new complaints and feels better Exam Data for Last 24 hours Vital signs and Labs for Last 24 Hours: Temp Pulse Resp BP Pulse Ox 97.6 F 73 18 96/66 L 100 07/22/22 08:00 07/22/22 08:00 07/22/22 08:00 07/22/22 08:00 07/22/22 08:00 Laboratory Results - last 24 hr 07/21/22 14:16: POC Glucose 186 H 07/21/22 17:30: POC Glucose 159 H 07/21/22 21:27: POC Glucose 223 H 07/22/22 05:56: POC Glucose 172 H 07/22/22 07:32: WBC 16.7 H D, RBC 3.84 L, Hgb 10.9 L, Hct 33.2 L, MCV 86.5, MCH 28.4, MCHC 32.8, RDW 15.8, Plt Count 393, MPV 8.2, Neut % (Auto) 86.5 H, Lymph % (Auto) 7.8 L, [place] % (Auto) 3.9, Eos % (Auto) 1.4, Baso % (Auto) 0.4, Neut # (Auto) 14.5 H, Lymph # (Auto) 1.3, [place] # (Auto) 0.7, Eos # (Auto) 0.2, Baso # (Auto) 0.1 07/22/22 07:32: Sodium 138, Potassium 3.3 L, Chloride 100, Carbon Dioxide 27, Anion Gap 14.3, BUN 25 H, Creatinine 1.20 H, Estimated Creat Clear 63, Estimated GFR 48 L, Est GFR ( Amer) 59 D, Glucose 178 H, Calcium 8.3 L, Magnesium 2.0 D, Total Bilirubin 0.3, AST 35 D, ALT 22, Alkaline Phosphatase 158 H, Total Protein 6.3, Albumin 3.0 L, Globulin 3.3 H, Albumin/Globulin Ratio 0.9 L I & O for Last 24 hours: Intake & Output 07/19/22 07/20/22 07/21/22 07/22/22 11:59 11:59 11:59 11:59 Intake Total 1420 / 1420 1250 / 1250 Output Total 0 / 0 0 / 0 Balance 1420 / 1420 1250 / 1250 Weight 330 lb 339 lb 5 oz 332 lb 14.368 oz Microbiology Reports for the Last 24 Hours: Microbiology 07/20/22 09:55 Blood Blood Culture - Preliminary NO GROWTH AFTER 48 HOURS 07/20/22 09:55 Blood Blood Culture - Preliminary NO GROWTH AFTER 48 HOURS Constitutional Constitutional: no acute distress *Routine Respiratory Exam Respiratory: Absent respiratory distress *Routine Cardiovascular Exam Cardiovascular: Absent tachycardia *Routine Abdominal Exam Abdominal: Present soft *Routine Skin Exam Comments: Left lower abdominal/groin/buttock wounds packed. No spreading cellulitis. Progress Note: A&P Assessment and plan (1) Abscess of left groin: Status: Acute Assessment and plan: Overall, doing well status post incision and drainage. Continue antibiotics Continue dressing changes (2) Cellulitis of groin: Status: Acute Assessment and plan: Continuing to improve (3) Sepsis: Status: Acute (4) Diabetes mellitus, type 2: Status: Chronic
--- NOTE | 2022-07-22 10:43 | EXP.ACUTE.PN ---
Subjective *Date: 07/22/22 *Time: 10:45 Interval history: Slept poorly overnight. Denies shortness of breath, chest pain, fever, nausea or vomiting. No bowel movement since admission. Pain stable. Required 1 dose of morphine last night. Tolerating p.o. intake. Medical Exam Vital signs and Labs for Last 24 Hours: Vital Signs Temp Pulse Resp BP Pulse Ox 07/22/22 08:00 99 07/22/22 08:00 97.6 F 73 18 96/66 L 100 07/22/22 04:00 98.1 F 74 16 102/56 L 100 07/21/22 20:00 99 07/21/22 23:19 98.0 F 69 18 89/62 L 95 07/21/22 20:00 98.2 F 75 20 117/75 95 07/21/22 20:17 98.7 F 85 18 112/69 99 07/21/22 16:00 98.1 F 81 16 97/60 L 98 07/21/22 12:00 97.8 F 82 16 110/50 L 96 Intake and Output 07/21/22 07/22/22 07/22/22 23:59 07:59 15:59 Intake Total 710 / 2000 240 / 300 60 / 300 Output Total 0 / 0 0 / 0 Balance 710 / 2000 240 / 300 60 / 300 Intake: Intake, Oral Amount 360 / 1200 240 / 300 60 / 300 Infusion Intake 350 / 350 Cefepime HCl 2 gm In 0.9 % 100 / 100 Sodium Chloride 100 ml @ 100 mls/hr IV Q12H [facility] Rx#:[id number] Vancomycin HCl 2,000 mg In 0.9 250 / 250 % Sodium Chloride 250 ml @ 125 mls/hr IV Q12H [facility] Rx#:[id number] Output: Output, Urine Amount 0 / 0 0 / 0 Other: Number of Unmeasured Voids 2 1 Weight 151.046 kg 151 kg Patient Weight 07/22/22 23:59 Weight 151 kg Laboratory Results - last 24 hr 07/21/22 14:16: POC Glucose 186 H 07/21/22 17:30: POC Glucose 159 H 07/21/22 21:27: POC Glucose 223 H 07/22/22 05:56: POC Glucose 172 H 07/22/22 07:32: WBC 16.7 H D, RBC 3.84 L, Hgb 10.9 L, Hct 33.2 L, MCV 86.5, MCH 28.4, MCHC 32.8, RDW 15.8, Plt Count 393, MPV 8.2, Neut % (Auto) 86.5 H, Lymph % (Auto) 7.8 L, [place] % (Auto) 3.9, Eos % (Auto) 1.4, Baso % (Auto) 0.4, Neut # (Auto) 14.5 H, Lymph # (Auto) 1.3, [place] # (Auto) 0.7, Eos # (Auto) 0.2, Baso # (Auto) 0.1 07/22/22 07:32: Sodium 138, Potassium 3.3 L, Chloride 100, Carbon Dioxide 27, Anion Gap 14.3, BUN 25 H, Creatinine 1.20 H, Estimated Creat Clear 63, Estimated GFR 48 L, Est GFR ( Amer) 59 D, Glucose 178 H, Calcium 8.3 L, Magnesium 2.0 D, Total Bilirubin 0.3, AST 35 D, ALT 22, Alkaline Phosphatase 158 H, Total Protein 6.3, Albumin 3.0 L, Globulin 3.3 H, Albumin/Globulin Ratio 0.9 L I & O for Labs for Last 24 Hours: Intake & Output 07/19/22 07/20/22 07/21/22 07/22/22 23:59 23:59 23:59 23:59 Intake Total 610 / 730 1760 / 2000 300 / 300 Output Total 0 / 0 0 / 0 Balance 610 / 730 1760 / 2000 300 / 300 Weight 68.663 kg 153.91 kg 151 kg Microbiology Reports for the Last 24 Hours: Microbiology 07/20/22 09:55 Blood Blood Culture - Preliminary NO GROWTH AFTER 48 HOURS 07/20/22 09:55 Blood Blood Culture - Preliminary NO GROWTH AFTER 48 HOURS Constitutional: Present no acute distress and morbidly obese Head: Present atraumatic and normocephalic ENT: Present normal exam Neck: Present normal inspection Respiratory: Present CTA bilaterally and normal respiratory effort; Absent accessory muscle use, rhonchi, wheezes or crackles Cardiac: Present Reg Rate and Rhythm GI: Present normal bowel sounds; Absent tenderness Comments:: Lesion on left lower gluteus drier and pulverizer tender, packing in place. Extremities: Present normal inspection and full ROM Skin: Present intact and erythema Comment:: Surgical incisions evaluated, moist with serosanguineous drainage soaking packing. No amanuel purulence. Neuro: Present Grossly Intact, alert, awake, oriented x 3 and moves all extremities Assessment and Plan *Assessment and plan (1) Abscess of left groin: Status: Acute Category: Medical Code(s): L02.214 - Cutaneous abscess of groin (2) Cellulitis of groin: Status: Acute Category: Medical Code(s): L03.314 - Cellulitis of groin (3) Hypertension: Status: Chr
[2022-07-22 11:30] LABS: Vancomycin,Trough 17.3 ug/mL (5.0-10.0)
[2022-07-22 12:00] VITALS: BP 112/52; PULSE 76; RESP 18; TEMP 36.4; O2SAT 96
--- NOTE | 2022-07-22 12:18 | P.CONPHA_ITS ---
Pharmacy Consult Date: 07/22/22 Time: 12:32 Referring provider: DR. TOMAS Reason for Consult:: VANCOMYCIN LEVEL Allergies Allergy/AdvReac Type Severity Reaction Status Date / Time No Known Allergies Allergy Verified 07/20/22 07:34 Home Medications Medication Instructions Recorded Confirmed Type hydrochlorothiazide 25 mg tablet 25 mg PO BID Fluid #30 tabs 01/12/19 07/20/22 History levothyroxine 75 mcg tablet 75 mcg PO DAILY THYROID #30 tabs 01/12/19 07/20/22 History escitalopram oxalate 20 mg tablet 20 mg PO DAILY MOOD 07/20/22 07/20/22 History levocetirizine 5 mg tablet 5 mg PO DAILY Allergy symptoms 07/20/22 07/20/22 History lisinopril 10 mg tablet 10 mg PO DAILY Hypertension 07/20/22 07/20/22 History metformin 500 mg tablet 500 mg PO BID Diabetes 07/20/22 07/20/22 History New Prescriptions to Start Prescriptions: Height: 1.78 m Weight: 151 kg Laboratory Results:: Laboratory Results - last 24 hr 07/21/22 14:16: POC Glucose 186 H 07/21/22 17:30: POC Glucose 159 H 07/21/22 21:27: POC Glucose 223 H 07/22/22 05:56: POC Glucose 172 H 07/22/22 07:32: WBC 16.7 H D, RBC 3.84 L, Hgb 10.9 L, Hct 33.2 L, MCV 86.5, MCH 28.4, MCHC 32.8, RDW 15.8, Plt Count 393, MPV 8.2, Neut % (Auto) 86.5 H, Lymph % (Auto) 7.8 L, [place] % (Auto) 3.9, Eos % (Auto) 1.4, Baso % (Auto) 0.4, Neut # (Auto) 14.5 H, Lymph # (Auto) 1.3, [place] # (Auto) 0.7, Eos # (Auto) 0.2, Baso # (Auto) 0.1 07/22/22 07:32: Sodium 138, Potassium 3.3 L, Chloride 100, Carbon Dioxide 27, Anion Gap 14.3, BUN 25 H, Creatinine 1.20 H, Estimated Creat Clear 63, Estimated GFR 48 L, Est GFR ( Amer) 59 D, Glucose 178 H, Calcium 8.3 L, Magnesium 2.0 D, Total Bilirubin 0.3, AST 35 D, ALT 22, Alkaline Phosphatase 158 H, Total Protein 6.3, Albumin 3.0 L, Globulin 3.3 H, Albumin/Globulin Ratio 0.9 L 07/22/22 10:45: Vancomycin Trough 17.3 H Medical History: Medical History (Updated 07/20/22 @ 16:34 by Jim Tomas MD) Diabetes mellitus, type 2 Hypertension Assessment and Plan Assessment and plan all Dx Assessment and Plan for all problems:: PATIENT'S VANCOMYCIN TROUGH LEVEL WAS 17.3 MCG/ML TODAY. RECOMMEND VANCOMYCIN 1750 MG Q12H AT THIS TIME.
[2022-07-22 12:53] LABS: Eosinophils % 2 % (0-3); Lymphocytes % 10 % (10-50); Monocytes % 3 % (2-9); Neutrophils % 85 % (42-76); Platelet Estimate Normal; RBC Morphology Normal; Total Cells Counted 100
--- NOTE | 2022-07-22 15:52 | PC.NURSE ---
PT HAS DONE WELL THIS SHIFT, SHE HAS BEEN ABLE TO AMBULATE IN ROOM AND TO RESTROOM, IS TOLERATING DIET WELL, DENIES N/V/D. SHE DID C/O HEADACHE THIS AFTERNOON AND WAS TREATED WITH TYLENOL WITH GOOD EFFECTIVENESS, SHE STATES THAT HER PAIN LEVEL HAS GREATLY IMPROVED SINCE YESTERDAY AND THAT THE SINGE DOSE OF PRN NORCO ADEQUATELY CONTROLLED HER PAIN.
[2022-07-22 16:00] VITALS: BP 95/54; PULSE 77; RESP 18; TEMP 36.6; O2SAT 98
[2022-07-22 16:46] LABS: POC Glucose,Bedside 152 (70-110)
[2022-07-22 17:08] LABS: Vancomycin,Peak 29.6 ug/ml (11-39)
[2022-07-22 18:10] LABS: POC Glucose,Bedside 179 (70-110)
[2022-07-22 19:45] VITALS: BP 107/62; PULSE 74; RESP 16; TEMP 36.8; O2SAT 98
[2022-07-22 20:00] VITALS: O2SAT 98
--- NOTE | 2022-07-22 20:00 | PC.NURSE ---
was given in report from mariela golden that wound dressings to be changed as needed, next wound change in am with md rounds
[2022-07-22 21:28] LABS: POC Glucose,Bedside 139 (70-110)
[2022-07-23] VITALS: BP 111/73; PULSE 77; RESP 20; TEMP 36.8; O2SAT 99
[2022-07-23 04:00] VITALS: BP 95/50; PULSE 68; RESP 18; TEMP 36.6; O2SAT 96
[2022-07-23 05:00] VITALS: BMI 47.5
--- NOTE | 2022-07-23 06:00 | PC.NURSE ---
no changes from previous report, pt is alert and oriented x4, no acute distress, pt wanted some melatonin to help her sleep last night, Jack Valle aprn ordered buspirone with some relief stated from patient after administration, wounds with kerlix packing intact, pt did shower this am, vss, no other issues or concerns at this time
[2022-07-23 06:54] LABS: Basophils # 0.1 K/mm3 (0-0.2); Basophils % 0.4 % (0.1-2.0); Eosinophils # 0.4 K/mm3 (0.0-0.4); Eosinophils % 2.8 % (0.1-12.0); Hematocrit 35.3 % (37.0-47.0); Hemoglobin 11.4 g/dL (12.2-16.2); Lymphocytes # 1.5 K/mm3 (0.7-4.5); Lymphocytes % 9.8 % (10-50); Mean Corpuscular HGB Conc 32.2 g/dL (31.8-35.4); Mean Corpuscular Hemoglobin 27.9 pg (27.0-31.2); Mean Corpuscular Volume 86.5 fl (81-99); Mean Platelet Volume 8.8 fl (7.4-10.4); Monocytes # 0.7 K/mm3 (0.1-1.0); Monocytes % 4.4 % (1.7-9.3); Neutrophils # 12.6 K/mm3 (1.8-7.8); Neutrophils % 82.5 % (37.0-80.0); Platelet Count 458 K/mm3 (142-424); Red Blood Count 4.08 M/mm3 (4.20-5.40); Red Cell Distribution Width 15.9 % (11.5-17.5); White Blood Count 15.3 K/mm3 (4.8-10.8)
[2022-07-23 06:56] LABS: MANUAL DIFFERENTIAL MANUAL DIFFERENTIAL (MANUAL DIFF)
[2022-07-23 07:02] LABS: Anion Gap 16.2 mEq/L (5-15); Blood Urea Nitrogen 21 mg/dl (7-17); Calcium 8.6 mg/dl (8.4-10.2); Carbon Dioxide 25 mmol/L (22.0-30.0); Chloride 102 mmol/L (98-107); Creatinine Clearance Estimated 63 mL/min (50-200); Estimated Glomerular Filt Rate 48 ml/min (>60); GFR (African American) 59 ML/MIN (>60); Glucose 125 mg/dl (74-100); Potassium 3.2 mmoL/L (3.5-5.1); Sodium 140 mmol/L (136-145)
--- NOTE | 2022-07-23 07:49 | EXP.DC.SUM ---
General Admission date:: 07/20/22 Discharge date: 07/23/22 HPI HPI HPI: Ms. Cohn is a 46-year-old female who presented to the ER today due to concern for flulike/COVID-like symptoms. States she is had body aches, headache, diarrhea and a cough. Chills and nausea as well. Denies any blood in her stool, chest pain, confusion. Symptoms of been going on for 3 days. Began with body aches. Having a hard time holding food down and feels dehydrated. On arrival to the ER evaluation showed labs with marked leukocytosis. Exam positive for cellulitis of lower abdomen. Patient met criteria for sepsis with tachycardia, leukocytosis, infectious etiology. Started on broad-spectrum antibiotics. Surgery consulted for abscess evaluation. Medicine was consulted for admission. Patient evaluated after arriving to the floor. Surgery took her to the OR for I&D where they found significant purulent material not seen on CT abdomen pelvis. Fairly large abscess left buttock with dark purulent drainage. Patient most comfortable laying on her left side at this time. Requesting something for pain as the incisions are sore. Denies history of previous abscesses, MRSA infections. States she had soreness on her left buttock but was not sure what it was from. Hospital Course Hospital Course Hospital Course: 46-year-old female with symptoms of sepsis on presentation (tachycardia, leukocytosis, infectious source with abscess in lower abdomen and gluteal region).? Admitted for IV antibiotics and surgical evaluation.? Status post I&D.? Continue current antibiotics.? Surgery evaluated, no plan to redebride.? Dressing changes daily.? Patient getting assistance from sister with dressing changes. Meeting criteria for discharge home. Continue oral antibiotics. Problems addressed during hospitalization as follows: Sepsis, resolved Cellulitis/abscess -Initiated on sepsis protocol with broad-spectrum antibiotics. Transitioned to Levaquin orally in place of cefepime for ease of dosing/administration at home. Initiate clindamycin at time of discharge for staph and anaerobic coverage. Will complete 10 days total of antibiotic therapy (6 more days after discharge). Blood cultures remained negative during hospitalization. No wound cultures reported. Patient overall saw clinical improvement with decreased redness and pain. Wound care/nursing counseled patient and her sister on packing wounds at least once daily if not twice. We will have close follow-up with surgery in a week to reevaluate. Diflucan sent as patient reports yeast infections after antibiotics. Diabetes -Patient is a longtime diabetic but was previously stable on oral medication per her report. A1c greater than 10 on admission. Initiated on sliding scale insulin, Lantus, metformin. Recommend resuming metformin at home and continue Lantus 20 units nightly. Further recommendations pending establishing with new PCP. Continue levothyroxine for hypothyroidism Continue home citalopram for anxiety Held blood pressure medications as her blood pressures have remained normal during hospitalization. Defer further management to the outpatient setting. Wants to establish with a new PCP. Will refer to Lola Dominguez at patient's request. Medically stable for discharge home Exam Data for Last 24 hours Vital signs and Labs for Last 24 Hours: Temp Pulse Resp BP Pulse Ox 97.9 F 68 18 95/50 L 96 07/23/22 04:00 07/23/22 04:00 07/23/22 04:00 07/23/22 04:00 07/23/22 04:00 Laboratory Results - last 24 hr 07/22/22 07:32: WBC 16.7 H D, RBC 3.84 L, Hgb 10.9 L, Hct 33.2 L, MCV 86.5, MCH 28.4, MCHC 32.8, RDW 15.8, Plt Count 393, MPV 8.2, Neut % (Auto) 86.5 H, Lymph % (Auto) 7.8 L, [place] % (Auto) 3.9, Eos % (Auto) 1.4, Baso % (Auto) 0.4, Neut # (Auto) 14.5 H, Lymph # (Auto) 1.3, [place] # (Auto) 0.7, Eos # (Auto) 0.2, Baso # (Auto) 0.1, Total Counted 100, Neutrophils % (Manual) 85 H, Lymphocytes % (Manual) 10,
[2022-07-23 07:50] LABS: Eosinophils % 2 % (0-3); Lymphocytes % 12 % (10-50); Monocytes % 5 % (2-9); Neutrophils % 81 % (42-76); Total Cells Counted 100
[2022-07-23 07:51] LABS: Platelet Estimate Slight Increase; RBC Morphology Normal
--- NOTE | 2022-07-23 07:56 | EXP.SURG.PN ---
Subjective Patient reports: no new complaints Narrative: Per patient and per nursing, dressing changes have been going well . No concerns voiced. Exam Data for Last 24 hours Vital signs and Labs for Last 24 Hours: Temp Pulse Resp BP Pulse Ox 97.9 F 68 18 95/50 L 96 07/23/22 04:00 07/23/22 04:00 07/23/22 04:00 07/23/22 04:00 07/23/22 04:00 Laboratory Results - last 24 hr 07/22/22 07:32: WBC 16.7 H D, RBC 3.84 L, Hgb 10.9 L, Hct 33.2 L, MCV 86.5, MCH 28.4, MCHC 32.8, RDW 15.8, Plt Count 393, MPV 8.2, Neut % (Auto) 86.5 H, Lymph % (Auto) 7.8 L, [place] % (Auto) 3.9, Eos % (Auto) 1.4, Baso % (Auto) 0.4, Neut # (Auto) 14.5 H, Lymph # (Auto) 1.3, [place] # (Auto) 0.7, Eos # (Auto) 0.2, Baso # (Auto) 0.1, Total Counted 100, Neutrophils % (Manual) 85 H, Lymphocytes % (Manual) 10, Monocytes % (Manual) 3, Eosinophils % (Manual) 2, Platelet Estimate Normal, RBC Morphology Normal 07/22/22 07:32: Sodium 138, Potassium 3.3 L, Chloride 100, Carbon Dioxide 27, Anion Gap 14.3, BUN 25 H, Creatinine 1.20 H, Estimated Creat Clear 63, Estimated GFR 48 L, Est GFR ( Amer) 59 D, Glucose 178 H, Calcium 8.3 L, Magnesium 2.0 D, Total Bilirubin 0.3, AST 35 D, ALT 22, Alkaline Phosphatase 158 H, Total Protein 6.3, Albumin 3.0 L, Globulin 3.3 H, Albumin/Globulin Ratio 0.9 L 07/22/22 10:45: Vancomycin Trough 17.3 H 07/22/22 12:22: POC Glucose 152 H 07/22/22 14:30: Vancomycin Peak 29.6 07/22/22 17:37: POC Glucose 179 H 07/22/22 21:04: POC Glucose 139 H 07/23/22 06:23: WBC 15.3 H, RBC 4.08 L, Hgb 11.4 L, Hct 35.3 L, MCV 86.5, MCH 27.9, MCHC 32.2, RDW 15.9, Plt Count 458 H, MPV 8.8, Neut % (Auto) 82.5 H, Lymph % (Auto) 9.8 L, [place] % (Auto) 4.4, Eos % (Auto) 2.8, Baso % (Auto) 0.4, Neut # (Auto) 12.6 H, Lymph # (Auto) 1.5, [place] # (Auto) 0.7, Eos # (Auto) 0.4, Baso # (Auto) 0.1, Total Counted 100, Neutrophils % (Manual) 81 H, Lymphocytes % (Manual) 12, Monocytes % (Manual) 5, Eosinophils % (Manual) 2, Platelet Estimate Slight increase, RBC Morphology Normal 07/23/22 06:23: Sodium 140, Potassium 3.2 L, Chloride 102, Carbon Dioxide 25, Anion Gap 16.2 H, BUN 21 H, Creatinine 1.20 H, Estimated Creat Clear 63, Estimated GFR 48 L, Est GFR ( Amer) 59, Glucose 125 H D, Calcium 8.6 I & O for Last 24 hours: Intake & Output 07/20/22 07/21/22 07/22/22 07/23/22 11:59 11:59 11:59 11:59 Intake Total 1420 / 1420 1250 / 1250 1420 / 1420 Output Total 0 / 0 0 / 0 0 / 0 Balance 1420 / 1420 1250 / 1250 1420 / 1420 Weight 330 lb 339 lb 5 oz 332 lb 14.368 oz 332 lb 2 oz Microbiology Reports for the Last 24 Hours: Microbiology 07/20/22 09:55 Blood Blood Culture - Preliminary NO GROWTH AFTER 48 HOURS 07/20/22 09:55 Blood Blood Culture - Preliminary NO GROWTH AFTER 48 HOURS Constitutional Constitutional: no acute distress *Routine Respiratory Exam Respiratory: Absent respiratory distress *Routine Cardiovascular Exam Cardiovascular: Absent tachycardia *Routine Skin Exam Comments: Dressings in place. No spreading cellulitis. Progress Note: A&P Assessment and plan (1) Abscess of left groin: Status: Acute Assessment and plan: Overall, continuing to improve status post incision and drainage. Likely discharge home soon with continued wound care, outpatient follow-up, and antibiotic coverage. (2) Cellulitis of groin: Status: Acute
[2022-07-23 08:00] VITALS: BP 113/60; PULSE 67; RESP 14; TEMP 36.7; O2SAT 98
[2022-07-23 12:45] LABS: POC Glucose,Bedside 226 (70-110)
[2022-07-23 12:45] LABS: POC Glucose,Bedside 124 (70-110)
--- NOTE | 2022-07-23 13:10 | PC.NURSE ---
PT RECIEVING ABX PIOR TO DC
--- NOTE | 2022-07-23 13:26 | HMH.PHAINT1 ---
Pharmacy Intervention Comments: Discharge counseling completed at bedside with the patient. Discussed new medications (levofloxacin, clindamycin, potassium chloride, and lantus insulin), continued medications, and discontinued medications. Overviewed indication and possible side effects/mitigation strategies of each new medication. Patient verbalized her understanding and has no questions or concerns at this time.
--- NOTE | 2022-07-24 15:46 | CARE MANAGER ---
Attempted post-discharge phone interview, no answer.
== END 2022-07-23 16:50 | disposition home or self-care (01) | DRG 580 ==
LOC: ER 12:45 → 2ND 15:37
PROVIDERS: Emergency Medicine; Surgery; Admitting Provider Internal Medicine Adolescent Medicine; Emergency Provider Emergency Medicine; Visit Provider Internal Medicine Adolescent Medicine
PROC: 0U9M0ZZ Drainage of Vulva, Open Approach (ICD-10-PCS; principal; 2022-07-20 13:20)
DX: L02.214 Cutaneous abscess of groin (principal); L02.31 Cutaneous abscess of buttock; N76.4 Abscess of vulva; Z68.42 Body mass index [BMI] 45.0-49.9, adult; L03.314 Cellulitis of groin; E11.9 Type 2 diabetes mellitus without complications; I10 Essential (primary) hypertension; E03.9 Hypothyroidism, unspecified; E66.01 Morbid (severe) obesity due to excess calories; F41.9 Anxiety disorder, unspecified
CPT/HCPCS: 56405; 10060 ×2; 36415; 74177; 76882; 80048; 80053; 80202; 82962; 83036; 83605; 83690; 83735; 85007; 85025; 87040; 99285; C9803; J2405; J3370; Q9967; U0003; U0005

== ENCOUNTER 2023-04-30 17:59 | Emergency (ER) | payer OTHER, SELFPAY ==
[2023-04-30 19:14] VITALS: BP 181/99; PULSE 62; RESP 17; TEMP 36.7; O2SAT 99; BMI 48.4
--- NOTE | 2023-04-30 19:30 | CT_ITS ---
PROCEDURE INFORMATION: Exam: CT Abdomen And Pelvis With Contrast Exam date and time: 04/30/2023 8:57 PM Age: 47 years old Clinical indication: Bloating; Additional info: R CVA pain radiating to ruq TECHNIQUE: Imaging protocol: Computed tomography of the abdomen and pelvis with contrast. Radiation optimization: All CT scans at this facility use at least one of these dose optimization techniques: automated exposure control; mA and/or kV adjustment per patient size (includes targeted exams where dose is matched to clinical indication); or iterative reconstruction. Contrast material: ISOVUE; Contrast volume: 75 ml; Contrast route: IV; REPORTING DATA: Count of CT and Cardiac NM exams in prior 12 months: This patient has received [address] and 0 known cardiac nuclear medicine studies in the 12 months prior to the current study. COMPARISON: CT ABDOMEN PELVIS W CON 07/20/2022 9:37 AM FINDINGS: Liver: Normal. No mass. Gallbladder and bile ducts: Normal. No calcified stones. No ductal dilation. Pancreas: Normal. No ductal dilation. Spleen: Normal. No splenomegaly. Adrenal glands: Normal. No mass. Kidneys and ureters: Normal. No hydronephrosis. Stomach and bowel: Unremarkable. No obstruction. No mucosal thickening. Appendix: No evidence of appendicitis. Intraperitoneal space: Unremarkable. No free air. No significant fluid collection. Vasculature: Unremarkable. No abdominal aortic aneurysm. Lymph nodes: Unremarkable. No enlarged lymph nodes. Urinary bladder: Unremarkable as visualized. Reproductive: Right ovarian dominant follicle versus cyst. Bones/joints: Degenerative changes of the spine, hips and SI joints. No acute osseous findings. Soft tissues: Unremarkable. IMPRESSION: No acute intra-abdominal findings.
--- NOTE | 2023-04-30 19:32 | HMH.EDGENADL ---
Discharge Plan Disposition Patient Disposition: Home, Self-Care Condition: Good Chief Complaint: Abdominal Pain Prescriptions Prescriptions: No Action levothyroxine 75 mcg tablet 75 mcg PO DAILY Qty: 30 metformin 500 mg tablet 500 mg PO BID Patient Comments: TAKE ONE TABLET BY MOUTH TWICE DAILY escitalopram oxalate 20 mg tablet 20 mg PO DAILY Patient Comments: TAKE ONE TABLET BY MOUTH EVERY DAY levocetirizine 5 mg tablet 5 mg PO DAILY Patient Comments: TAKE ONE TABLET BY MOUTH EVERY DAY insulin glargine [Lantus Solostar U-100 Insulin] 100 unit/mL (3 mL) insulin pen 15 unit SQ HS Referrals Follow up/Referrals: Renetta Dominguez APRN [Primary Care Provider] - See instructions Clinical Impressions Clinical Impression: Abdominal pain, Acute back pain Instructions Patient Instructions: DI for Acute Abdominal Pain Discharge ED Provider: Wilbur Ruth General Adult HPI General Chief complaint: Abdominal Pain Stated complaint: Pain Right side and back Time Seen by Provider: 04/30/23 19:18 Mode of Arrival: Family Vehicle Source of Information: Patient Limitations: No Limitations Description of Symptoms (Recalled from ER Triage Doc. by RN): 47 yo female presents with CC of painn that began in her right flank and radiates to her RUQ since Saturday. Patient describes pain as gas-like , so she stated that she took Gas-x without relief. Unable to rate on _/10 pain scale adequately. Afebrile. No past abd surgical history. PMH: DM,thyroid,depression,htn. Patient has NKA. Denies n/v/d. Denies dysuria. denies issues with appetite. No other complaints offered. History of Present Illness HPI narrative: Patient is a 47-year-old female with no pertinent past medical history presents emergency department for evaluation of pain. Onset was acute, since Saturday, over her right costovertebral angle and has since wrapped around into her right upper quadrant and epigastric area of her abdomen. Denies chest pain, vomiting, shortness of breath, dysuria, other acute complaints at this time. Related Data Home Medications Medication Instructions Recorded Confirmed levothyroxine 75 mcg tablet 75 mcg PO DAILY THYROID #30 tabs 01/12/19 04/30/23 escitalopram oxalate 20 mg tablet 20 mg PO DAILY MOOD 07/20/22 04/30/23 levocetirizine 5 mg tablet 5 mg PO DAILY Allergy symptoms 07/20/22 04/30/23 metformin 500 mg tablet 500 mg PO BID Diabetes 07/20/22 04/30/23 insulin glargine 100 unit/mL (3 15 unit SQ HS Diabetes 04/30/23 04/30/23 mL) subcutaneous pen (Lantus Solostar U-100 Insulin) Allergies Allergy/AdvReac Type Severity Reaction Status Date / Time No Known Allergies Allergy Verified 09/19/22 09:25 [facility] Disclaimer: The information contained in this section may have been updated after the patient was seen, as this information can be updated by other users. Medical History Diabetes mellitus, type 2 Hypertension Surgical History History of incision and drainage Social History Smoking Status: Unknown if ever smoked alcohol intake: never substance use type: denies use current occupational status: other Travel in the last 8 weeks: None household members: family housing: house ROS Obtained: Yes Systems reviewed as appropriate & no additional complaints except as documented Physical Exam General General appearance: alert and in no apparent distress Head Head exam: atraumatic and normocephalic Eye Eye exam: Present PERRL and EOMI ENT ENT exam: Present mucous membranes moist Neck Neck exam: Present normal inspection Chest Chest inspection: Present normal inspection and symmetric chest wall rise Respiratory Respiratory exam: Present normal lung sounds bilaterally; Abse
[2023-04-30 19:57] LABS: Basophils # 0.1 K/mm3 (0-0.2); Basophils % 0.7 % (0.1-2.0); Eosinophils # 0.2 K/mm3 (0.0-0.4); Eosinophils % 1.6 % (0.1-12.0); Hematocrit 39.6 % (37.0-47.0); Hemoglobin 13.3 g/dL (12.2-16.2); Lymphocytes # 2.6 K/mm3 (0.7-4.5); Lymphocytes % 21.7 % (10-50); Mean Corpuscular HGB Conc 33.6 g/dL (31.8-35.4); Mean Corpuscular Hemoglobin 28.1 pg (27.0-31.2); Mean Corpuscular Volume 83.5 fl (81-99); Monocytes # 0.7 K/mm3 (0.1-1.0); Neutrophils # 8.2 K/mm3 (1.8-7.8); Platelet Count 400 K/mm3 (142-424); Red Blood Count 4.74 M/mm3 (4.20-5.40); Red Cell Distribution Width 16.1 % (11.5-17.5); White Blood Count 11.7 K/mm3 (4.8-10.8)
[2023-04-30 20:00] LABS: Chloride 102 mmol/L (98-107); Potassium 3.7 mmoL/L (3.5-5.1); Sodium 140 mmol/L (136-145)
[2023-04-30 20:02] LABS: Alanine Aminotransferase 27 U/L (12-78); Alkaline Phosphatase 136 U/L (38-126); Anion Gap 13.7 mEq/L (5-15); Aspartate Amino Transferase 27 U/L (14-36); Bilirubin,Total 0.3 mg/dl (0.2-1.3); Blood Urea Nitrogen 16 mg/dl (7-17); Carbon Dioxide 28 mmol/L (22.0-30.0); Creatinine Clearance Estimated 75 mL/min (50-200); Estimated Glomerular Filt Rate 59 ml/min (>60); GFR (African American) 72 ML/MIN (>60)
[2023-04-30 20:03] LABS: Albumin Level 3.8 g/dl (3.5-5.0); Calcium 9.8 mg/dl (8.4-10.2); Globulin 3.9 g/dL (1.3-3.2); Glucose 140 mg/dl (74-100); Lipase 297 U/L (23-300); Total Protein,Serum 7.7 g/dl (6.3-8.2)
[2023-04-30 20:35] LABS: Microscopic, Urine URINE MICROSCOPIC (MICROSCOPIC)
[2023-04-30 20:42] LABS: Appearance,Urine CLEAR (Clear); Bilirubin,Urine Negative (Negative); Blood, Urine Negative (Negative); Color,Urine YELLOW (Yellow); Glucose,Urine (UA) Negative (Negative); Ketones,Urine Negative (Negative); Leukocyte Esterase,Urine Negative (Negative); Nitrate,Urine Negative (Negative); Protein,Urine 3+ (Negative); Specific Gravity, Urine >= 1.030 (1.005-1.030); Urobilinogen,Urine 0.2 EU/dl (0.2)
--- NOTE | 2023-04-30 20:53 | PC.NURSE ---
pt at ct
[2023-04-30 21:41] LABS: Bacteria,Urine Trace /lpf; Squamous Epithelial Cell,Urine Occasional #/hpf (0-5); WBC,Urine Occasional #/hpf (0-3)
[2023-04-30 22:23] VITALS: BP 158/75; PULSE 89; RESP 16; TEMP 36.8; O2SAT 99
== END 2023-04-30 22:32 | disposition home or self-care (01) ==
PROVIDERS: Emergency Provider Emergency Medicine; PCP Nurse Practitioner Family
DX: R10.13 Epigastric pain (principal); R10.11 Right upper quadrant pain; E11.9 Type 2 diabetes mellitus without complications; I10 Essential (primary) hypertension
CPT/HCPCS: 74177; 80053; 81001; 83690; 85025; 96374; 96375; 99285; J2405; Q9967

== ENCOUNTER 2025-03-10 07:48 | Outpatient (CLI) | payer OTHER, SELFPAY ==
--- OUTSIDE RECORDS SUMMARY | 2024-12-05 17:30 | XMS_ITS ---
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 Conversion Encounter Medications Medication SIG (Take, Route, Frequency, Duration) Notes Start Date End Date Status Losartan Potassium 50 MG 1 tab(s) orally once a day; Duration: 90 days Active traZODone HCl 100 MG 100 mg orally once at night; Duration: 30 days 11/03/2024 Active Euthyrox 100 MCG (0.1 MG) 1 TAB(S) ORALLY ONCE A DAY; Duration: 90 DAYS *Please review and pick correct strength-formula tion from Jigsaw Meeting options. If intended option is not shown, discontinue and re-order from Quick Search* Active Erythromycin 5 MG/GM 1 chapis in each affected eye 4 times a day; Duration: 7 days 11/03/2024 Active hydroCHLOROthiazide 25 MG 1 tab(s) orally once a day; Duration: 90 days Active Jardiance 10 MG 1 tab(s) orally once a day (in the morning); Duration: 90 days Active Mounjaro 10 MG/0.5 ML 10 MG SUBCUTANEOUSLY ONCE A WEEK; Duration: 28 DAYS *Please review and pick correct strength-formula tion from Jigsaw Meeting options. If intended option is not shown, discontinue and re-order from Quick Search* 11/03/2024 Active BD PEN NEEDLE UF 5 MM 31G 11/15 DIRECTED ONCE A WEEK; Duration: 90 DAYS *Please review for potential replacement for e-prescription and drug interaction check* 08/23/2022 Active Levocetirizine Dihydrochloride 5 MG 1 tab(s) orally once a day (in the evening); Duration: 30 day(s) Active metFORMIN HCl ER 500 MG TAKE TWO TABLETS BY MOUTH TWICE DAILY; Duration: 90 days Active Escitalopram Oxalate 20 MG 1 tab(s) orally once a day; Duration: 90 days Active Encounters Encounter Location Date Provider Diagnosis [facility] [address] [place] [address] 12/05/2024 Provider Migration Hordeolum externum left lower eyelid H00.015 ; Type 2 diabetes mellitus without complication, without long-term current use of insulin E11.9 and Primary insomnia F51.01 Assessments Encounter Date Diagnosis (ICD Code) Assessment Notes Treatment Notes Treatment Clinical Notes Section Notes 12/05/2024 Hordeolum externum left lower eyelid (ICD-10 - H00.015) 12/05/2024 Type 2 diabetes mellitus without complication, without long-term current use of insulin (ICD-10 - E11.9) 12/05/2024 Primary insomnia (ICD-10 - F51.01) Plan Of Treatment Medication Medication Name Sig Start Date Stop Date Notes traZODone HCl 100 MG 100 mg orally once at night; Duration: 30 days 11/03/2024 Erythromycin 5 MG/GM 1 chapis in each affec saul eye 4 times a day; Duration: 7 days 11/03/2024 Mounjaro 10 MG/0.5 ML 10 MG SUBCUTANEOUS LY ONCE A WEEK; Duration: 28 DAYS 11/03/2024 *Please review and pick correct strength-formulation from Jigsaw Meeting options. If intended option is not shown, discontinue and re-order from Quick Search* Next Appt Details Provider Name:Renetta Valerio ce, 05/20/2025 08:30:00 AM, [address], [address], [place], [address], Progress Notes * Helio COHNOB:1975 (49 yo F)Acc No.[id number]:12/05/2024 Patient: Nori PLUMMER Provider: Cm Hanna :1975 A ge:49 Y S ex:Female Date:12/05/2024 Address:[address] [place] [address], [id number] Pcp:Renetta Dominguez Subjective: * Chief Complaints: * 1 . Multum To Medispan Conversion Encounter. * Medical History: * Medications: T aking BD PEN NEEDLE UF 5 MM 31G 11/15 DIRECTED ONCE A WEEK , Notes to Pharmacist: *Please review for potential replacement for e-prescription and drug interaction check*, Taking Levocetirizine Dihydrochloride 5 MG Tablet 1 tab(s) orally once a day (in the evening) , Taking metFORMIN HCl ER 500 MG Tablet Extended Release 24 Hour TAKE TWO TABLETS BY MOUTH TWICE DAILY , Taking Losartan Potassium 50 MG Tablet 1 tab(s) orally once a day , Taking Euthyrox 100 MCG (0.1 MG) TABLET 1 TAB(S) ORALLY ONCE A DAY , Notes to Pharmacist: *Please review and pick correct strength-formulation from Medispan options. If intended option is not shown, discontinue and re-order from Quick Search*, Taking hydroCHLOROthiazide 25 MG Tablet 1 tab(s) orally once a day , Taking Escitalopram Oxalate 20 MG Tablet 1 tab(s) orally once a day , Taking Jardiance 10 MG Tablet 1 tab(s) orally once a day (in the morning) Objective: * Vitals: Assessment: * Assessment: 1. H ordeolum externum left lower eyelid - H00.015 (Primary) 2 . T ype 2 diabetes mellitus without complication, without long-term current use of insulin - E11.9 ?3. P rimary insomnia - F51.01 Plan: * Treatment: 2. T ype 2 diabetes mellitus without complication, without long-term current use of insulin Start Mounjaro SOLUTION, 10 MG/0.5 ML, 10 MG, SUBCUTANEOUSLY, ONCE A WEEK, 28 DAYS, 2 ML, Refills 2, Notes to Pharmacist: *Please review and pick correct strength-formulation from Medispan options. If intended option is not shown, discontinue and re-order from Quick Search*. 3. P rimary insomnia Start traZODone HCl Tablet, 100 MG, 100 mg, orally, once at night, 30 days, 30, Refills 2. ? * * Electronic signature of Prov kevinr Migration on 03/10/2025 at 07:50 AM EDT Sign off status: Pending * Provider: Cm clark Migration Date: 0 12/05/2024 Generated for Anjel lindsay/Alfredo/Jelly on: 0 03/10/2025 07:50 AM EDT
--- OUTSIDE RECORDS SUMMARY | 2025-02-23 04:15 | XMS_ITS ---
Author Organization [facility] Address [address] [facility] [address] [place] [address] Care Team Providers Care Snowmaker Name Role Phone Abdullahi Dominguez Primary Care Provider ABDULLAHI DOMINGUEZ Unavailable Unavaila ble Allergies No Known Allergies Results Component Value Reference Range Notes Microalbumin (In-House) Reviewed date:02/23/2025 12:33:36 PM Interpretation: Performing Lab: Notes/Report: ALB 150mg CRE 50mg A:C >300mg LIPID PANEL, STANDARD (7600) Reviewed date:02/26/2025 09:43:57 AM Interpretation: Performing Lab:CB, [facility] [id number] [facility], [facility] [id number] Terry Ly Notes/Report: FASTING: YES FASTING:YES NON-FASTING; NON-FASTING; NON-FASTING; NON-FASTING; NON-FAST CHOLESTEROL, TOTAL 245 <200 mg/dL HDL CHOLESTEROL [...] LDL-C. Almas JONES et al. ADRIANA. 2013;310(19): 9447-4045 (http://[email or web address].[employer]/faq/APS773) CHOL/HDLC RATIO 4.3 <5.0 (calc) NON HDL CHOLESTEROL 188 <130 mg/dL (calc) For patients with diabetes plus 1 major ASCVD risk factor, treating to a non-HDL-C goal of <100 mg/dL (LDL-C of <70 mg/dL) is considered a therapeutic option. COMPREHENSIVE METABOLIC PANE (87442) Reviewed date:02/26/2025 09:43:57 AM Interpretation: Performing Lab:JUAN PABLO, [facility] [facility] [id number], Autonomic [id number] Terry Ly Notes/Report: NON-FASTING; NON-FASTING; NON-FASTING; NON-FASTING; [...] date:02/26/2025 09:43:57 AM Interpretation: Performing Lab:JUAN PABLO, [employer] [id number], Achieved.[id number] Terry Ly Notes/Report: NON-FASTING; NON-FASTING; NON-FASTING; NON-FASTING; [...] MPV 9.9 7.5-12.5 fL ABSOLUTE NEUTROPHILS 6048 3627-4719 cells/uL ABSOLUTE LYMPHOCYTES 2178 850-3900 cells/uL ABSOLUTE MONOCYTES 594 200-950 cells/uL ABSOLUTE EOSINOPHILS 108 15-500 cells/uL ABSOLUTE BASOPHILS 72 0-200 cells/uL NEUTROPHILS 67.2 LYMPHOCYTES 24.2 MONOCYTES 6.6 EOSINOPHILS 1.2 BASOPHILS 0.8 HEMOGLOBIN A1c (496) Reviewed date:02/26/2025 09:43:57 AM Interpretation: Performing Lab:CB, [facility] [id number] [facility], [facility] [id number] Terry Ly Notes/Report: FASTING: YES FASTING:YES NON-FASTING; NON-FASTING; NON-FASTING; NON-FASTING; NON-FAST HEMOGLOBIN A1c 6.7 <5.7 % For someone [...] diabetes for children. TSH W/REFLEX TO FT4 (94751) Reviewed date:02/26/2025 09:43:57 AM Interpretation: Performing Lab:CB, [facility] [id number], [facility] [id number] Terry Ly Notes/Report: NON-FASTING; NON-FASTING; NON-FASTING; NON-FASTING; NON-FAST FASTING:YES FASTING: YES TSH W/REFLEX TO FT4 2.11 Reference Range > or = 20 Years 0.40-4.50 Ranges First trimester 0.26-2.66 Second trimester 0.55-2.73 Third trimester 0.43-2.91 Reason For Referral Reason Please send screenin shaji kit Diagnosis 1 Colon cancer screeni neftali (Z12.11) Referral Organization [facility] Referring Provider First Name Abdullahi Referring Provider Last Name Angelica Referring Provider [facility] Referred Provider Carlton britt Referral Priority Routine [...] review and pick correct strength-formula tion from [employer] Paddle Bo[employer]an options. If intended option is not shown, [...] Status W/U Status Risk Notes Problem Inattention (84066936) Inattention (R41.840) Active confirmed Vital Signs Temperature 97.7 degrees Fahrenheit 02/24/20 25 Blood pressure systolic 120 mm Hg 02/24/20 25 Blood pressure diastolic 88 mm Hg 025 Heart Rate 80 /min 02/23/2025 Height 5ft 10in in 02/23/2025 Weight 335.6 lbs 02/23/2025 BMI 48.15 kg/m2 02/23/2025 Encounters Encounter Location Date Provider Diagnosis [facility] [address] [facility] [address] [place] [address] 02/23/2025 Abdullahi Dominguez Routine medical exam Z00.00 [...] *Please review and pick correct strength-formulation from [employer] options. If intended option is not shown, [...] Diabetes: Care Instructions mater ial was published Pending Test Test Name Order Date Mammogram: Screening 02/23/2025 Referrals Referral Date Details 02/23/2025 02/23/2025, Please s end screening kit, [facility] cologuard Next Appt Details Follow Up: 6 Weeks, Reason: medication change Provider Name:Abdullahi Valerio , 05/20/2025 08:30:00 AM, [address] [facility], [address], [place], [address], Progress Notes * Jose COHNhDOB:1975 (49 yo F)Acc No.[id number]:02/23/2025 Progress Notes Patient: Nori PLUMMER Provider: YG Michael :1975 A ge:49 Y S ex:Female Date:02/23/2025 Address:[address] [place] [address], [id number] Subjective: * Chief Complaints: * 1 . AWV. 2. Refill on mounjaro. * HPI: g en: 49-year-old female presents today for annual [...] yes. Travel outside [place]: no. 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 [...] *Please review and pick correct strength-formulation from [employer] options. If intended option is not shown, discontinue and re-order from Quick Search*, Taking traZODone HCl 100 MG Tablet 100 mg orally once at night , Taking Euthyrox 100 MCG (0.1 MG) TABLET 1 TAB(S) ORALLY ONCE A DAY , Notes to Pharmacist: *Please review and pick correct strength-formulation from [employer]pan options. If intended option is not shown, [...] 09:43 AM EDT ?LAB: COMPREHENSIVE METABOLIC PANEL (80946)* Value Reference Range G LUCOSE 120 H [...] 09:43 AM EDT ?LAB: CBC (INCLUDES DIFF/PLT) (9776)* Value Reference Range W FAUSTO BLOOD CELL [...] - % * A BSOLUTE NEUTROPHILS 6048 2526-1230 - cells/uL * L YMPHOCYTES 24.2 - [...] AM EDT ?LAB: TSH W/REFLEX TO FT4 (68161)* Value Reference Range T SH W/REFLEX TO [...] Quick Search*;?Stop metFORMIN HCl ER Tablet Extended Gyapgay52 Hour, 500 MG, TAKE TWO TABLETS BY MOUTH TWICE DAILY;?Start Mounjaro Solution Auto-injector, 12.5 MG/0.5ML, 12.5 mg, Subcutaneous, once a week, 28 days, 2 mL, Refills 0.?LAB: LIPID PANEL, STANDARD (4720)* Value Reference Range T RIGLYCERIDES 106 <150 [...] 09:43 AM EDT ?LAB: COMPREHENSIVE METABOLIC PANEL (15421)* Value Reference Range G LUCOSE 120 H [...] 09:43 AM EDT ?LAB: CBC (INCLUDES DIFF/PLT) (8670)* Value Reference Range W FAUSTO BLOOD CELL [...] - % * A BSOLUTE NEUTROPHILS 6048 7421-8987 - cells/uL * L YMPHOCYTES 24.2 - [...] AM EDT ?LAB: TSH W/REFLEX TO FT4 (02731)* Value Reference Range T SH W/REFLEX TO [...] EDT >This lab was reviewed by Abdullahi Dominguez on 02/23/2025 at 12:33 PM EDT Notes: [...] 188 H <130 - mg/dL (calc) * Dariusz Bella Puga 02/26/2025 09: 39:09 AM EDT > pt informed-Rx sentThis lab was reviewed by Bella Arzola on 02/26/2025 at 09:43 AM EDT ?LAB: COMPREHENSIVE METABOLIC PANEL (56786)* Value Reference Range G LUCOSE 120 H [...] 09:43 AM EDT ?LAB: CBC (INCLUDES DIFF/PLT) (3646)* Value Reference Range W FAUSTO BLOOD CELL [...] - % * A BSOLUTE NEUTROPHILS 6048 0322-4465 - cells/uL * L YMPHOCYTES 24.2 - [...] AM EDT ?LAB: TSH W/REFLEX TO FT4 (92188)* Value Reference Range T SH W/REFLEX TO [...] 09:43 AM EDT ?LAB: COMPREHENSIVE METABOLIC PANEL (15402)* Value Reference Range G LUCOSE 120 H [...] 09:43 AM EDT ?LAB: CBC (INCLUDES DIFF/PLT) (0312)* Value Reference Range W FAUSTO BLOOD CELL [...] - % * A BSOLUTE NEUTROPHILS 6048 1640-9453 - cells/uL * L YMPHOCYTES 24.2 - [...] AM EDT ?LAB: TSH W/REFLEX TO FT4 (63725)* Value Reference Range T SH W/REFLEX TO [...] of wellbutrin??8.?Visit for screening mammogram?Imaging: Mammogram: Screening* 9.?Colon cancer screening? Referral To:[facility] cologuard ?Reason:Please send screening kit * Immunizations: Boostrix : .5 mL (Route: Intramuscular) given by ANN Yusuf on Left Deltoid * Procedure Codes: 8 2043 MICROALBUMIN, URINE, Modifiers: QW , 50961 Boostrix, 70083 immunization administration through 18 years of age via any route of administration. * Preventive Medicine: Immunizations: I nfluenza . T dap D one today in office. Screening / Special Tests: M ammogram n eeds to be scheduled. P ap Smear?no prior, will consider. C olonoscopy C bonifacio recommended. L dayanara Cancer Screening?will be eligible at age 50 years. * Follow Up: 6 Weeks (Reason: medication change) * * Sign off status: Completed true * Provider: YG Michael Date: 0 02/23/2025 Generated for Kimi neftali/Alfredo/eTransmitting on: 0 03/10/2025 07:50 AM EDT History and Physical Notes * [...]
--- NOTE | 2025-03-10 07:49 | MM_ITS ---
PROCEDURE INFORMATION: Exam: MG Bilateral Screening 3D Mammography Exam date and time: 03/10/2025 8:05 AM Age: 49 years old Clinical indication: Screening examination TECHNIQUE: Imaging protocol: Bilateral Screening tomosynthesis and 2D mammography including computer-aided detection (CAD) when performed. COMPARISON: No relevant prior studies available. FINDINGS: MAMMOGRAPHY: Breast composition: There are scattered areas of fibroglandular density. Mass: 0.9 cm mass upper-outer left breast middle depth. Architectural distortion: None. Calcifications: No suspicious calcifications. Asymmetric density: None. Skin thickening: None. Axillary adenopathy: None. IMPRESSION: Subcentimeter left breast mass. Recommend further evaluation with left breast ultrasound. ASSESSMENT: BI-RADS Category 0: Incomplete- Need Additional Imaging Evaluation.
--- OUTSIDE RECORDS SUMMARY | 2025-03-10 07:50 | XMS_ITS | Patient Health Record ---
Author Organization [facility] Address [address] [facility] [address] [place] [address] Care Team Providers Care Packager And Strapper Name Role Phone Abdullahi Dominguez Primary Care Provider ABDULLAHI DOMINGUEZ Unavailable Unavaila ble Migration, Provider Unavailable Unavailable Allergies No Known Allergies Results Component Value Reference Range Notes Microalbumin (In-House) Reviewed date:02/23/2025 12:33:36 PM Interpretation: Performing Lab: Notes/Report: ALB 150mg CRE 50mg A:C >300mg LIPID PANEL, STANDARD (7600) Reviewed date:02/26/2025 09:43:57 AM Interpretation: Performing Lab:CB, [facility] [id number] [facility] CenterHfhxIJ[address] Terry Ly Notes/Report: NON-FASTING; NON-FASTING; NON-FASTING; NON-FASTING; [...] LDL-C. Almas JONES et al. ADRIANA. 2013;310(19): 8441-6725 (http://education.Quest[facility].Mojeek/faq/FLP905) CHOL/HDLC RATIO 4.3 <5.0 (calc) NON HDL CHOLESTEROL 188 <130 mg/dL (calc) For patients with diabetes plus 1 major ASCVD risk factor, treating to a non-HDL-C goal of <100 mg/dL (LDL-C of <70 mg/dL) is considered a therapeutic option. COMPREHENSIVE METABOLIC PANE (74063) Reviewed date:02/26/2025 09:43:57 AM Interpretation: Performing Lab:JUAN PABLO, [facility] [id number], MedProJcwhBW[address] Terry Ly Notes/Report: NON-FASTING; NON-FASTING; NON-FASTING; NON-FASTING; [...] date:02/26/2025 09:43:57 AM Interpretation: Performing Lab:JUAN PABLO, [facility]UTOPYe[address], UTOPYUwyeQO[address] Terry Ly Notes/Report: NON-FASTING; NON-FASTING; NON-FASTING; NON-FASTING; [...] MPV 9.9 7.5-12.5 fL ABSOLUTE NEUTROPHILS 6048 9743-3450 cells/uL ABSOLUTE LYMPHOCYTES 2178 850-3900 cells/uL ABSOLUTE MONOCYTES 594 200-950 cells/uL ABSOLUTE EOSINOPHILS 108 15-500 cells/uL ABSOLUTE BASOPHILS 72 0-200 cells/uL NEUTROPHILS 67.2 LYMPHOCYTES 24.2 MONOCYTES 6.6 EOSINOPHILS 1.2 BASOPHILS 0.8 HEMOGLOBIN A1c (496) Reviewed date:02/26/2025 09:43:57 AM Interpretation: Performing Lab:JUAN PABLO, [facility] [id number] [facility] CenterHskjEY[address] Terry Ly Notes/Report: NON-FASTING; NON-FASTING; NON-FASTING; NON-FASTING; [...] diabetes for children. TSH W/REFLEX TO FT4 (92941) Reviewed date:02/26/2025 09:43:57 AM Interpretation: Performing Lab:JUAN PABLO, [facility] [address], [place] BzqlXI[address] Terry Ly Notes/Report: NON-FASTING; NON-FASTING; NON-FASTING; NON-FASTING; NON-FAST FASTING:YES FASTING: YES TSH W/REFLEX TO FT4 2.11 Reference Range > or = 20 Years 0.40-4.50 Ranges First trimester 0.26-2.66 Second trimester 0.55-2.73 Third trimester 0.43-2.91 LIPID PANEL, STANDARD (7600) Reviewed date:04/30/2024 03:43:20 PM Interpretation: Performing Lab:JUAN PABLO, [facility]UTOPYe[address], UTOPYDsguIZ[address] Terry Ly Notes/Report: NON-FASTING; NON-FASTING; NON-FASTING; NON-FASTING; NON-FAST FASTING:YES FASTING: YES CHOLESTEROL, TOTAL 236 <200 mg/dL HDL CHOLESTEROL 55 > OR = 50 mg/dL TRIGLYCERIDES 179 <150 mg/dL LDL-CHOLESTEROL 150 Reference range: <100 Desirable range <100 mg/dL for primary prevention; <70 mg/dL for patients with CHD or diabetic patients with > or = 2 CHD risk factors. LDL-C is now calculated using the Almas-[place]atch calculation, which is a validated novel method providing better accuracy than the Friedewald equation in the estimation of LDL-C. Almas SS et al. ADRIANA. 2013;310(19): 7360-0069 (http://education.[employer].com/faq/NAF301) CHOL/HDLC RATIO 4.3 <5.0 (calc) NON HDL CHOLESTEROL 181 <130 mg/dL (calc) For patients with diabetes plus 1 major ASCVD risk factor, treating to a non-HDL-C goal of <100 mg/dL (LDL-C of <70 mg/dL) is considered a therapeutic option. COMPREHENSIVE METABOLIC PANE L (12199) Reviewed date:04/30/2024 03:43:20 PM Interpretation: Performing Lab:JUAN PABLO, [facility] [address], MedProKjikLM[address] Terry Ly Notes/Report: NON-FASTING; NON-FASTING; NON-FASTING; NON-FASTING; NON-FAST FASTING:YES FASTING: YES GLUCOSE 113 65-99 mg/dL Fasting reference interval For someone without known diabetes, a glucose value between 100 and 125 mg/dL is consistent with prediabetes and should be confirmed with a follow-up test. UREA NITROGEN (BUN) 21 7-25 mg/dL CREATININE 1.14 0.50-0.99 mg/dL EGFR 59 > OR = 60 mL/min/1.73m2 BUN/CREATININE RATIO 18 6-22 (calc) SODIUM 140 135-146 mmol/L POTASSIUM 4.3 3.5-5.3 mmol/L CHLORIDE 103 98-110 mmol/L CARBON DIOXIDE 26 20-32 mmol/L CALCIUM 9.4 8.6-10.2 mg/dL PROTEIN, TOTAL 6.9 6.1-8.1 g/dL ALBUMIN 3.8 3.6-5.1 g/dL GLOBULIN 3.1 1.9-3.7 g/dL (calc) ALBUMIN/GLOBULIN RATIO 1.2 1.0-2.5 (calc) BILIRUBIN, TOTAL 0.2 0.2-1.2 mg/dL ALKALINE PHOSPHATASE 121 31-125 U/L AST 15 10-35 U/L ALT 14 6-29 U/L CBC (INCLUDES DIFF/PLT) (639 9) Reviewed date:04/30/2024 03:43:20 PM Interpretation: Performing Lab:JUAN PABLO, [facility]1355 [facility], [facility] CenterVdekTV[address] Terry Ly Notes/Report: NON-FASTING; NON-FASTING; NON-FASTING; NON-FASTING; NON-FAST FASTING:YES FASTING: YES WHITE BLOOD CELL COUNT 9.8 3.8-10.8 Thousand/ uL RED BLOOD CELL COUNT 4.51 3.80-5.10 Million/uL HEMOGLOBIN 12.9 11.7-15.5 g/dL HEMATOCRIT 41.3 35.0-45.0 % MCV 91.6 80.0-100.0 fL MCH 28.6 27.0-33.0 pg MCHC 31.2 32.0-36.0 g/dL RDW 15.4 11.0-15.0 % PLATELET COUNT 371 140-400 Thousand/uL MPV 9.4 7.5-12.5 fL ABSOLUTE NEUTROPHILS 6301 7957-5366 cells/uL ABSOLUTE LYMPHOCYTES 2656 850-3900 cells/uL ABSOLUTE MONOCYTES 568 200-950 cells/uL ABSOLUTE EOSINOPHILS 167 15-500 cells/uL ABSOLUTE BASOPHILS 108 0-200 cells/uL NEUTROPHILS 64.3 LYMPHOCYTES 27.1 MONOCYTES 5.8 EOSINOPHILS 1.7 BASOPHILS 1.1 HEMOGLOBIN A1c (496) Reviewed date:04/30/2024 03:43:21 PM Interpretation: Performing Lab:JUAN PABLO [facility] Bobm1215 Pharm[address] HoldingteJeff[facility] CenterTckyMU[address] Terry Ly Notes/Report: NON-FASTING; NON-FASTING; NON-FASTING; NON-FASTING; NON-FAST FASTING:YES FASTING: YES HEMOGLOBIN A1c 6.5 <5.7 % of total Hgb For someone without known diabetes, a hemoglobin [...] A1c for diagnosis of diabetes for children. This test was performed on the Misty christin c503 platform. Effective 11/06/23, a change in test platforms from the Tovar Soft Sugar Operator Head to the Misty christin c503 may have shifted HbA1c results compared to historical results. Based on laboratory validation testing conducted at [facility], the Misty platform relative to the Tovar platform had an average increase in HbA1c value of < or = 0.3%. This difference is within accepted variability established by the National Glycohemoglobin Standardization Program. Note that not all individuals will have had a shift in their results and direct comparisons between historical and current results for testing conducted on different platforms is not recommended. TSH W/REFLEX TO FT4 (77071) Reviewed date:04/30/2024 03:43:21 PM Interpretation: Performing Lab:JUAN PABLO [facility] [id number] Pharm[address] HoldingteJeff[facility] CenterEdqsCL[address] Terry Ly Notes/Report: NON-FASTING; NON-FASTING; NON-FASTING; NON-FASTING; NON-FAST FASTING:YES FASTING: YES NON-FASTING; NON-FASTING; NON-FASTING; NON-FASTING; NON-FAST FASTING:YES FASTING: YES TSH W/REFLEX TO FT4 4.60 Reference Range > or = 20 Years 0.40-4.50 Ranges First trimester 0.26-2.66 Second trimester 0.55-2.73 Third trimester 0.43-2.91 T4, FREE 1.3 0.8-1.8 ng/dL Rapid Strep Reviewed date:07/27/2024 11:34:42 AM Interpretation:Positive Performing Lab: Notes/Report: Positive Rapid Covid/Flu A-B Combo Reviewed date:07/27/2024 11:37:32 AM Interpretation: Performing Lab: Notes/Report: Rapid Covid neg Flu A neg Flu B neg Reason For Referral Reason Please send screenin g kit Diagnosis 1 Colon cancer screeni neftali (Z12.11) Referral Organization [facility] Referring Provider First Name Abdullahi Referring Provider Last Name Angelica Referring Provider Speciality [facility] Referred Provider Carlton britt Referral Priority Routine Medications Medication SIG (Take, Route, Frequency, Duration) Notes Start Date End Date Status Levocetirizine Dihydrochloride 5 MG 1 tab(s) orally once a day (in the evening); Duration: 30 day(s) Active Mounjaro 12.5 MG/0.5ML 12.5 mg Subcutaneous once a week; Duration: 28 days 02/23/2025 Active hydroCHLOROthiazide 25 mg TAKE ONE TABLE T BY MOUTH EVERY DAY; Duration: 90 Active BD PEN NEEDLE UF 5 MM 31G 11/15 DIRECTED ONCE A WEEK; Duration: 90 DAYS *Please review for potential replacement for e-prescription and drug interaction check* 08/23/2022 Active Wellbutrin XL 150 MG 1 tablet in the morning Orally Once a day; Duration: 30 days 02/23/2025 Active Losartan Potassium 100 MG 1 tablet Orall y Once a day; Duration: 30 days 02/26/2025 Active Crestor 5 MG 1 tablet Orally Once a day; Duration: 30 days 02/26/2025 Active Jardiance 10 MG 1 tab(s) orally once a day (in the morning); Duration: 90 days Active Escitalopram Oxalate 20 mg TAKE ONE TABLET BY MOUTH EVERY DAY; Duration: 90 Active traZODone HCl 100 mg TAKE ONE TABLET BY MOUTH ONCE AT night; Duration: 30 Active Euthyrox 100 MCG (0.1 MG) 1 TAB(S) ORALL Y ONCE A DAY; Duration: 90 DAYS *Please review and pick correct strength-formula tion from Toplistspan options. If intended option is not shown, discontinue and re-order from Quick Search* Active Immunizations Vaccine Route Administration Date Status Comme nts FLUZONE 6MO - OLDER IM Intramuscular 07/16/2023 Administer ed Flublok IM Intramuscular 08/09/2022 Administered Covid Jonah Unknown 09/28/2021 Administered Boostrix IM Intramuscular 02/23/2025 Administered Social History Tobacco Use: Social History Observation Description Date Details (start date - stop date) Never Smoker NA - NA Smoking: Question Answer Notes Are you a: nonsmoker Section Notes: Vaping. 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 Pt vapes Pt vapes Pt vapes Pt vapes Pt vapes Pt vapes Pt vapes Problems Problem Type SNOMED Code ICD Code Onset Dates Problem Status W/U Status Risk Notes Problem Generalized anxiety disorder (47301650) Generalized anxiety disorder (F41.1) Active confirmed Problem Primary insomnia (1199773) Primary insomnia (F51.01) Active confirmed Problem Body mass index 40+ - severely obese (097996614) BMI 45.0-49.9, adult (Z68.42) Active confirmed Problem Hypothyroidism (34172592) Hypothyroidism (acquired) (E03.9) Active confirmed Problem Morbid obesity (787471005) Obesity, morbid, BMI 50 or higher (E66.01) Active confirmed Problem Daytime somnolence (969096735382) Daytime somnolence (R40.0) Active confirmed Problem Inattention (83256189) Inattention (R41.840) Active confirmed Problem Type II diabetes mellitus without complication (509509588) Type 2 diabetes mellitus without complication, without long-term current use of insulin (E11.9) Active confirmed Problem Primary hypertension (47013301) Primary hypertension (I10) Active confirmed Vital Signs Heart Rate 80 /min 02/23/2025 Temperature 97.7 degrees Fahrenheit 02/23/2025 Blood pressure diastolic 88 mm Hg 02/23/2025 Height 5ft 10in in 02/23/2025 Blood pressure systolic 120 mm Hg 02/23/2025 Weight 335.6 lbs 02/23/2025 BMI 48.15 kg/m2 02/23/2025 Encounters Encounter Location Date Provider Diagnosis [facility] [address] [facility] [address] [place], [place] [address] 12/05/2024 Provider Migration Hordeolum externum left lower eyelid H00.015 ; Type 2 diabetes mellitus without complication, without long-term current use of insulin E11.9 and Primary insomnia F51.01 [facility] [address] [facility] [address] [place] [address] 04/28/2024 Abdullahi Dominguez Hypothyroidism (acquired) E03.9 ; Type 2 diabetes mellitus without complication, without long-term current use of insulin E11.9 ; Primary hypertension I10 ; Generalized anxiety disorder F41.1 ; Primary insomnia F51.01 and Obesity, morbid, BMI 50 or higher E66.01 [facility] [address] [facility] [address] [place] [address] 07/27/2024 Abdullahi Dominguez Chills (without feve r) R68.83 ; Strep sore throat J02.0 ; Type 2 diabetes mellitus without complication, without long-term current use of insulin E11.9 and Exposure to COVID-19 virus Z20.822 [facility] [address] [facility] [address] [place] [address] 11/03/2024 Abdullahi Dominguez Hordeolum externum left lower eyelid H00.015 ; Type 2 diabetes mellitus without complication, without long-term current use of insulin E11.9 and Primary insomnia F51.01 [facility] [address] [facility] [address] [place] [address] 02/23/2025 Abdullahi Dominguez Routine medical exam Z00.00 ; Type 2 diabetes mellitus without complication, without long-term current use of insulin E11.9 ; Primary insomnia F51.01 ; Generalized anxiety disorder F41.1 ; Hypothyroidism (acquired) E03.9 ; Primary hypertension I10 ; Inattention R41.840 ; Encounter for immunization Z23 ; Visit for screening mammogram Z12.31 and Colon cancer screening Z12.11 [facility] [address] [facility] [address] [place] [address] 03/31/2024 Abdullahi Mobley [facility] [address] [facility] [address] [place] [address] 04/29/2024 Abdullahi Mobley [facility] [address] [facility] [address] [place] [address] [facility] [address] [place] [address] 02/26/2025 Abdullahi Dominguez Primary hypertension I10 Assessments Encounter Date Diagnosis (ICD Code) Assessment Notes Treatment Notes Treatment Clinical Notes Section Notes 11/03/2024 Hordeolum externum left lower eyelid (ICD-10 - H00.015) Rec start topical antibiotics as noted, warm compresses at least TID, return precautions reviewed 11/03/2024 Type 2 diabetes mellitus without complication, without long-term current use of insulin (ICD-10 - E11.9) 04/28/2024 Type 2 diabetes mellitus without complication, without long-term current use of insulin (ICD-10 - E11.9) goal A1C < 7. Not monitoring glucose at home. Agrees to labs today and pending results, consider change from Ozempic to Mounjaro. Encouraged compliance with CC diet and more regular exercise 12/05/2024 Hordeolum externum left lower eyelid (ICD-10 - H00.015) 12/05/2024 Type 2 diabetes mellitus without complication, without long-term current use of insulin (ICD-10 - E11.9) 02/23/2025 Routine medical exam (ICD-10 - Z00.00) Well Visit, Ages 18 to 65: Care Instructions material was published 02/23/2025 Type 2 diabetes mellitus without complication, without long-term current use of insulin (ICD-10 - E11.9) Type 2 Diabetes: Care Instructions material was published 02/26/2025 Primary hypertension (ICD-10 - I10) 04/28/2024 Hypothyroidism (acquired) (ICD-10 - E03.9) continue replacement, overdue for monitoring labs 07/27/2024 Chills (without fever) (ICD-10 - R68.83) 07/27/2024 Strep sore throat (ICD-10 - J02.0) Discussed infectious precautions, no school or return to work until afebrile for 24 hours. Encourage oral fluid intake and discussed fever treatment. Discussed importance of completing all antibiotics and reasons for followup. 07/27/2024 Type 2 diabetes mellitus without complication, without long-term current use of insulin (ICD-10 - E11.9) Tolerating Mounjaro well, continue with titration as noted. Follow-up again in 4 weeks to repeat labs. 11/03/2024 Primary insomnia (ICD-10 - F51.01) 02/23/2025 Primary insomnia (ICD-10 - F51.01) can continue trazodone PRN 12/05/2024 Primary insomnia (ICD-10 - F51.01) 04/28/2024 Primary hypertension (ICD-10 - I10) tolerating losartan, improved BP today 02/23/2025 Generalized anxiety disorder (ICD-10 - F41.1) continue lexapro 04/28/2024 Generalized anxiety disorder (ICD-10 - F41.1) well controlled on lexapro 07/27/2024 Exposure to COVID-19 virus (ICD-10 - Z20.822) 04/28/2024 Primary insomnia (ICD-10 - F51.01) trazodone helps with sleep onset but reports restless sleep...encourag ed her to consider home sleep study, she will let us know if agreeable 02/23/2025 Hypothyroidism (acquired) (ICD-10 - E03.9) 02/23/2025 Primary hypertension (ICD-10 - I10) well controlled 04/28/2024 Obesity, morbid, BMI 50 or higher (ICD-10 - E66.01) complicates all aspects of care 02/23/2025 Inattention (ICD-10 - R41.840) trial of wellbutrin 02/23/2025 Visit for screening mammogram (ICD-10 - Z12.31) 02/23/2025 Encounter for immunization (ICD-10 - Z23) 02/23/2025 Colon cancer screening (ICD-10 - Z12.11) Plan Of Treatment Pending Test Test Name Order Date Mammogram : Bilateral 10/29/2022 M-Erythrocyte Sedimentation Rate 023 M-Comprehensive Metabolic Panel 10/29/19 23 M-Hemoglobin A1C 10/29/2022 M-Uric Acid 10/29/2022 M-Lipid Panel 10/29/2022 M-Thyroid Stimulating Hormone 10/29/2022 M-RA Latex Turbid. 10/29/2022 Mammogram: Screening 02/23/2025 Next Appt Details Provider Name:Abdullahi Valerio ce, 05/20/2025 08:30:00 AM, [address], [address], [place], [address], Insurance Providers Payer Name Payer Address Payer Phone Subscriber Number Group Number Insured Name Patient Relationship to Insured Coverage Start Date Coverage End Date [facility] [address] [place] [phone] [id number] Nori Cohn Self - patient is the insured Medical (General) History Medical History History ICD Code type II diabetes Hypothyroidism anxiety hypertension Obesity Surgical History Surgery Date(Month/Year) leg infection 07/2022 Oral 2021 Hospitalization History Reason Date(Month/Year) [facility] 07/2022
== END 2025-03-10 23:59 | disposition home or self-care (01) ==
LOC: RAD 07:49
PROVIDERS: PCP Nurse Practitioner Family; Visit Provider Nurse Practitioner Family
DX: Z12.31 Encounter for screening mammogram for malignant neoplasm of breast (principal); N63.21 Unspecified lump in the left breast, upper outer quadrant; R92.323 Mammographic fibroglandular density, bilateral breasts
CPT/HCPCS: 77063; 77067

== ENCOUNTER 2025-03-19 08:46 | Outpatient (CLI) | payer OTHER, SELFPAY ==
--- OUTSIDE RECORDS SUMMARY | 2024-12-05 17:30 | XMS_ITS ---
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 If intended option is not shown, [...] review and pick correct strength-formula tion from CONEXANCE MD options. If intended option is not shown, [...] Active Encounters Encounter Location Date Provider Diagnosis [facility] [address] [place] [address] 12/05/2024 Provider Migration Hordeolum externum left lower [...] *Please review and pick correct strength-formulation from CONEXANCE MD options. If intended option is not shown, discontinue and re-order from Quick Search* Next Appt Details Provider Name:Renetta Valerio ce, 05/20/2025 08:30:00 AM, [address], [address], [place], [address], Progress Notes * Helio COHNOB:1975 (49 yo F)Acc No.[id number]:12/05/2024 Patient: Nori PLUMMER Provider: Cm Hanna :1975 A ge:49 Y S ex:Female Date:12/05/2024 Address:[address] [place] [address], [id number] Pcp:Renetta Dominguez Subjective: * Chief Complaints: * [...] Electronic signature of Prov kevinr Migration on 03/19/2025 at 08:47 AM EDT Sign off status: Pending * Provider: Cm clark Migration Date: 0 12/05/2024 Generated for Anjel lindsay/Alfredo/Morganitting on: 0 03/19/2025 08:47 AM EDT
--- OUTSIDE RECORDS SUMMARY | 2025-02-23 04:15 | XMS_ITS ---
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 Name Role Phone Abdullahi Dominguez Primary Care Provider ABDULLAHI DOMINGUEZ Unavailable Unavaila ble Allergies No Known Allergies Results Component Value Reference Range Notes Microalbumin (In-House) Reviewed date:02/23/2025 12:33:36 PM Interpretation: Performing Lab: Notes/Report: ALB 150mg CRE 50mg A:C >300mg LIPID PANEL, STANDARD (7600) Reviewed date:02/26/2025 09:43:57 AM Interpretation: Performing Lab:CB, [facility] [id number] [facility], [facility] HospitalZkohZB[address] Terry Ly Notes/Report: NON-FASTING; NON-FASTING; NON-FASTING; NON-FASTING; NON-FAST FASTING:YES FASTING: YES CHOLESTEROL, TOTAL 245 <200 mg/dL HDL CHOLESTEROL 57 > OR = 50 mg/dL TRIGLYCERIDES 106 <150 mg/dL LDL-CHOLESTEROL 166 Reference range: <100 Desirable range <100 mg/dL for primary prevention; <70 mg/dL for patients with CHD or diabetic patients with > or = 2 CHD risk factors. LDL-C is now calculated using the Leena calculation, which is a validated novel method providing better accuracy than the Friedewald equation in the estimation of LDL-C. Almas JONES et al. ADRIANA. 2013;310(19): 1034-6570 (http://education.Pay-Me.Vimodi/faq/IXZ087) CHOL/HDLC RATIO 4.3 <5.0 (calc) NON HDL CHOLESTEROL 188 <130 mg/dL (calc) For patients with diabetes plus 1 major ASCVD risk factor, treating to a non-HDL-C goal of <100 mg/dL (LDL-C of <70 mg/dL) is considered a therapeutic option. COMPREHENSIVE METABOLIC PANE (74993) Reviewed date:02/26/2025 09:43:57 AM Interpretation: Performing Lab:JUAN PABLO, [employer] [id number], PlaceWise [id number] Terry Ly Notes/Report: NON-FASTING; NON-FASTING; NON-FASTING; NON-FASTING; NON-FAST FASTING:YES FASTING: YES GLUCOSE 120 65-99 mg/dL Fasting reference interval For someone without known diabetes, a glucose value between 100 and 125 mg/dL is consistent with prediabetes and should be confirmed with a follow-up test. UREA NITROGEN (BUN) 22 7-25 mg/dL CREATININE 1.09 0.50-0.99 mg/dL EGFR 62 > OR = 60 mL/min/1.73m2 BUN/CREATININE RATIO 20 6-22 (calc) SODIUM 140 135-146 mmol/L POTASSIUM 3.7 3.5-5.3 mmol/L CHLORIDE 101 98-110 mmol/L CARBON DIOXIDE 25 20-32 mmol/L CALCIUM 9.5 8.6-10.2 mg/dL PROTEIN, TOTAL 7.4 6.1-8.1 g/dL ALBUMIN 4.1 3.6-5.1 g/dL GLOBULIN 3.3 1.9-3.7 g/dL (calc) ALBUMIN/GLOBULIN RATIO 1.2 1.0-2.5 (calc) BILIRUBIN, TOTAL 0.3 0.2-1.2 mg/dL ALKALINE PHOSPHATASE 139 31-125 U/L AST 16 10-35 U/L ALT 14 6-29 U/L CBC (INCLUDES DIFF/PLT) (639 9) Reviewed date:02/26/2025 09:43:57 AM Interpretation: Performing Lab:JUAN PABLO, [facility] [facility] [id number], [id number] Terry Ly Notes/Report: NON-FASTING; NON-FASTING; NON-FASTING; NON-FASTING; NON-FAST FASTING:YES FASTING: YES WHITE BLOOD CELL COUNT 9.0 3.8-10.8 Thousand/ uL RED BLOOD CELL COUNT 5.18 3.80-5.10 Million/uL HEMOGLOBIN 14.4 11.7-15.5 g/dL HEMATOCRIT 47.1 35.0-45.0 % MCV 90.9 80.0-100.0 fL MCH 27.8 27.0-33.0 pg MCHC 30.6 32.0-36.0 g/dL For adults, a slight decrease in the calculated MCHC value (in the range of 30 to 32 g/dL) is most likely not clinically significant; however, it should be interpreted with caution in correlation with other red cell parameters and the patient's clinical condition. RDW 15.0 11.0-15.0 % PLATELET COUNT 309 140-400 Thousand/uL MPV 9.9 7.5-12.5 fL ABSOLUTE NEUTROPHILS 6048 8389-5518 cells/uL ABSOLUTE LYMPHOCYTES 2178 850-3900 cells/uL ABSOLUTE MONOCYTES 594 200-950 cells/uL ABSOLUTE EOSINOPHILS 108 15-500 cells/uL ABSOLUTE BASOPHILS 72 0-200 cells/uL NEUTROPHILS 67.2 LYMPHOCYTES 24.2 MONOCYTES 6.6 EOSINOPHILS 1.2 BASOPHILS 0.8 HEMOGLOBIN A1c (496) Reviewed date:02/26/2025 09:43:57 AM Interpretation: Performing Lab:CB, [facility] [id number] [facility] Centerte[facility], [facility] HospitalOpbjBJ[address] Terry Ly Notes/Report: NON-FASTING; NON-FASTING; NON-FASTING; NON-FASTING; NON-FAST FASTING:YES FASTING: YES HEMOGLOBIN A1c 6.7 <5.7 % For someone without known diabetes, a hemoglobin A1c value of 6.5% or greater indicates that they may have diabetes and this should be confirmed with a follow-up test. For someone with known diabetes, a value <7% indicates that their diabetes is well controlled and a value greater than or equal to 7% indicates suboptimal control. A1c targets should be individualized based on duration of diabetes, age, comorbid conditions, and other considerations. Currently, no consensus exists regarding use of hemoglobin A1c for diagnosis of diabetes for children. TSH W/REFLEX TO FT4 (34405) Reviewed date:02/26/2025 09:43:57 AM Interpretation: Performing Lab:CB, [facility] [id number], Bet[facility] HospitalBuvoSM[address] Terry Ly Notes/Report: NON-FASTING; NON-FASTING; NON-FASTING; NON-FASTING; NON-FAST FASTING:YES FASTING: YES TSH W/REFLEX TO FT4 2.11 Reference Range > or = 20 Years 0.40-4.50 Ranges First trimester 0.26-2.66 Second trimester 0.55-2.73 Third trimester 0.43-2.91 Mammogram: Screening Reviewed date:03/16/2025 12:44:55 PM Interpretation: Performing Lab: Notes/Report: Reason For Referral Reason Please send screenin g kit Diagnosis 1 Colon cancer screeni neftali (Z12.11) Referral Organization [facility] Referring Provider First Name Abdullahi Referring Provider Last Name Angelica Referring Provider Speciality [facility] Referred Provider Carlton britt Referral Priority Routine REASON FOR VISIT AWV, refill on mounjaro Medications Medication SIG (Take, Route, Frequency, Duration) Notes Start Date End Date Status Mounjaro 12.5 MG/0.5ML 12.5 mg Subcutaneous once a week; Duration: 28 days 02/23/2025 Active hydroCHLOROthiazide 25 mg TAKE ONE TABLE T BY MOUTH EVERY DAY; Duration: 90 Active Wellbutrin XL 150 MG 1 tablet in the morning Orally Once a day; Duration: 30 days 02/23/2025 Active traZODone HCl 100 MG 100 mg orally once at night; Duration: 30 days 11/03/2024 Active Jardiance 10 MG 1 tab(s) orally once a day (in the morning); Duration: 90 days Active Escitalopram Oxalate 20 mg TAKE ONE TABLET BY MOUTH EVERY DAY; Duration: 90 Active Euthyrox 100 MCG (0.1 MG) 1 TAB(S) ORALL Y ONCE A DAY; Duration: 90 DAYS *Please review and pick correct strength-formula tion from Medispan options. If intended option is not shown, discontinue and re-order from Quick Search* Active Levocetirizine Dihydrochloride 5 MG 1 tab(s) orally once a day (in the evening); Duration: 30 day(s) Active BD PEN NEEDLE UF 5 MM 31G 11/15 DIRECTED ONCE A WEEK; Duration: 90 DAYS *Please review for potential replacement for e-prescription and drug interaction check* 08/23/2022 Active Losartan Potassium 50 MG 1 tab(s) orally once a day; Duration: 90 days Active Immunizations Vaccine Route Administration Date Status Comme nts Boostrix IM Intramuscular 02/23/2025 Administered Social History Tobacco Use: Social History Observation Description Date Details (start date - stop date) Never Smoker NA - NA Smoking: Question Answer Notes Are you a: nonsmoker Section Notes: Vaping. 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 Problems Problem Type SNOMED Code ICD Code Onset Dates Problem Status W/U Status Risk Notes Problem Inattention (27222359) Inattention (R41.840) Active confirmed Vital Signs Temperature 97.7 degrees Fahrenheit 02/24/20 25 Blood pressure systolic 120 mm Hg 02/24/20 25 Blood pressure diastolic 88 mm Hg 025 Heart Rate 80 /min 02/23/2025 Height 5ft 10in in 02/23/2025 Weight 335.6 lbs 02/23/2025 BMI 48.15 kg/m2 02/23/2025 Encounters Encounter Location Date Provider Diagnosis [facility] [address] [place] [address] 02/23/2025 Abdullahi Dominguez Routine medical exam Z00.00 ; Type 2 diabetes mellitus without complication, without long-term current use of insulin E11.9 ; Primary insomnia F51.01 ; Generalized anxiety disorder F41.1 ; Hypothyroidism (acquired) E03.9 ; Primary hypertension I10 ; Inattention R41.840 ; Encounter for immunization Z23 ; Visit for screening mammogram Z12.31 and Colon cancer screening Z12.11 Assessments Encounter Date Diagnosis (ICD Code) Assessment Notes Treatment Notes Treatment Clinical Notes Section Notes 02/23/2025 Routine medical exam (ICD-10 - Z00.00) Well Visit, Ages 18 to 65: Care Instructions material was published 02/23/2025 Type 2 diabetes mellitus without complication, without long-term current use of insulin (ICD-10 - E11.9) Type 2 Diabetes: Care Instructions material was published 02/23/2025 Primary insomnia (ICD-10 - F51.01) can continue trazodone PRN 02/23/2025 Generalized anxiety disorder (ICD-10 - F41.1) continue lexapro 02/23/2025 Hypothyroidism (acquired) (ICD-10 - E03.9) 02/23/2025 Primary hypertension (ICD-10 - I10) well controlled 02/23/2025 Inattention (ICD-10 - R41.840) trial of wellbutrin 02/23/2025 Encounter for immunization (ICD-10 - Z23) 02/23/2025 Visit for screening mammogram (ICD-10 - Z12.31) 02/23/2025 Colon cancer screening (ICD-10 - Z12.11) Plan Of Treatment Medication Medication Name Sig Start Date Stop Date Notes metFORMIN HCl ER 500 MG TAKE TWO TABLETS BY MOUTH TWICE DAILY Mounjaro 12.5 MG/0.5ML 12.5 mg Subcutaneous once a week; Duration: 28 days 02/23/2025 Mounjaro 10 MG/0.5 ML 10 MG SUBCUTANEOUSLY ONCE A WEEK 11/03/2024 *Please review and pick correct strength-formulation from [employer] options. If intended option is not shown, discontinue and re-order from Quick Search* Wellbutrin XL 150 MG 1 tablet in the mor tiffani Orally Once a day; Duration: 30 days 02/23/2025 Treatment Notes Assessment Notes Routine medical exam Well Visit, Ages 18 to 65: Care Instructions material was published Type 2 diabetes mellitus wit hout complication, without long-term current use of insulin Type 2 Diabetes: Care Instructions mater ial was published Referrals Referral Date Details 02/23/2025 02/23/2025, Please s end screening kit, [employer] cologuard Next Appt Details Follow Up: 6 Weeks, Reason: medication change Provider Name:Abdullahi Valerio ce, 05/20/2025 08:30:00 AM, [address] [facility], [address], [place], [address], Progress Notes * Jose COHNhDOB:1975 (49 yo F)Acc No.[id number]:02/23/2025 Progress Notes Patient: Nori PLUMMER Provider: YG Michael :1975 A ge:49 Y S ex:Female Date:02/23/2025 Address:[address] [place], [place] [address], [id number] Subjective: * Chief Complaints: * 1 . AWV. 2. Refill on mounjaro. * HPI: shaji en: 49-year-old female presents today for annual exam and chronic disease FU. No acute concerns. DM, doesn't check her blood sugars at home but doesn't feel bad. Denies CP, SOA, ABD pain, N/V/D, constipation. Does have occasional belching. States she takes all medication as prescribed but has been out of Mounjaro for 3 weeks. Has lowered dose of metformin due to loose stool. D iabetes: ophthalmology eval W ithin the past year, due for FU. P sychology: Tolerating lexapro and trazodone but questioning some ADD tendencies with poor patience, inattention and difficulty retaining information but denies these things during childhood that she recalls. * ROS: R ESPIRATORY: no S hortness of breath. C ARDIOLOGY: no C hest pain. n o P alpitations. C ONSTITUTIONAL: Fatigue yes. D ERMATOLOGY: no R sergio. E NDOCRINOLOGY: no F atigue. F EMALE REPRODUCTIVE: Positive for m enopause around age 45 years. ? G ASTROENTEROLOGY: no N ausea. n o H eartburn. n o V omiting.?no A bdominal pain. n o D iarrhea. n o C onstipation. M USCULOSKELETAL: Reviewed, No Symptoms Reported: Y es. N EUROLOGY: Headache y es, m igraines. P SYCHOLOGY: See HPI Y es. U ROLOGY: Reviewed, No Symptoms Reported: Y es. * Medical History: t ype II diabetes, Hypothyroidism, Anxiety, Hypertension, Obesity. * Surgical History: l eg infection 07/2022, Oral 2021. * Hospitalization/Major Diagno stic Procedure: H MH 07/2022. * Family History: F ather: , diabetes, heart disease, cancer. M other: , diabetes, dementia.?Paternal Grand Father: . P aternal Grand Mother: . M aternal Grand Father: . M aternal Grand Mother: . P aternal uncle: alive. P aternal aunt: unknown. M aternal uncle: alive. M aternal aunt: alive. S iblings: alive. 4 brother(s) , 5 sister(s) . . * Social History: S moking A re you a: n onsmoker. R ecreational drug use: no. Exercise: no. Home smoke detector use: yes. Caffeine: yes, frequency: Daily. Living Will: No. Alcohol: no. Sexually active: yes. Travel outside [place]: no. 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 * Medications: T aking BD PEN NEEDLE [...] tab(s) orally once a day , Taking Mounjaro 10 MG/0.5 ML SOLUTION 10 MG SUBCUTANEOUSLY ONCE A WEEK , Notes to Pharmacist: *Please review and pick correct strength-formulation from [employer] options. If intended option is not shown, discontinue and re-order from Quick Search*, Taking traZODone HCl 100 MG Tablet 100 mg orally once at night , Taking Euthyrox 100 MCG (0.1 MG) TABLET 1 TAB(S) ORALLY ONCE A DAY , Notes to Pharmacist: *Please review and pick correct strength-formulation from [employer] options. If intended option is not shown, discontinue and re-order from Quick Search*, Taking Jardiance 10 MG Tablet 1 tab(s) orally once a day (in the morning) , Taking Escitalopram Oxalate 20 mg Tablet TAKE ONE TABLET BY MOUTH EVERY DAY , Taking hydroCHLOROthiazide 25 mg Tablet TAKE ONE TABLET BY MOUTH EVERY DAY , Discontinued Erythromycin 5 MG/GM Ointment 1 chapis in each affected eye 4 times a day , Medication List reviewed and reconciled with the patient * Allergies: N .K.D.A. Objective: * Vitals: N urse:sw, Pain:0, Temp:97.7, RR:18, HR:80, BP:120/88, Ht: 5ft 10in, Wt:335.6, BMI:48.15. * Examination: G eneral Examination: General P leasant and Cooperative, NAD on RA,. Oral cavity: M oist membranes. Heart: R egular Rate and Rhythm, no murmur, rubs or gallops. HEENT: p harynx and tonsils normal, TM's normal. Lungs: c lear to auscultation,, no wheezes or crackles,.? Abdomen: s oft, NT/ND, BS present. Neurologic Exam: g ait normal,, unremarkable,. Skin: n ormal, no rash,. Extremities: p ulses 2 plus bilaterally,. neck s upple,, no thyromegaly,, no lymphadenopathy,. Psych N ormal Mood/Affect. Assessment: * Assessment: 1. R outine medical exam - Z00.00 (Primary) 2 . T ype 2 diabetes mellitus without complication, without long-term current use of insulin - E11.9 3 . P rimary insomnia - F51.01 4 . G eneralized anxiety disorder - F41.1 5 . H ypothyroidism (acquired) - E03.9 6 . P rimary hypertension - I10 ? 7 . I nattention - R41.840 8 . V isit for screening mammogram - Z12.31 9 . E ncounter for immunization - Z23 1 0. C olon cancer screening - Z12.11 Plan: * Treatment: Value Reference Range T RIGLYCERIDES 106 <150 - mg/dL * C HOLESTEROL, TOTAL 245 H <200 - mg/dL * H DL CHOLESTEROL 57 > OR = 50 - mg/dL * L DL-CHOLESTEROL 166 H - mg/dL (calc) * C HOL/HDLC RATIO 4.3 <5.0 - (calc) * N ON HDL CHOLESTEROL 188 H <130 - mg/dL (calc) * Bella Arzola 02/26/2025 09: 39:09 AM EDT > pt informed-Rx sentThis lab was reviewed by Bella Arzola on 02/26/2025 at 09:43 AM EDT ?LAB: COMPREHENSIVE METABOLIC PANEL (93403)* Value Reference Range G LUCOSE 120 H 65-99 - mg/dL * U JUNIOR NITROGEN (BUN) 22 7-25 - mg/dL * C REATININE 1.09 H 0.50-0.99 - mg/dL * B UN/CREATININE RATIO 20 6-22 - (calc) * S ODIUM 140 135-146 - mmol/L * P OTASSIUM 3.7 3.5-5.3 - mmol/L * C HLORIDE 101 98-110 - mmol/L * C ARBON DIOXIDE 25 20-32 - mmol/L * C ALCIUM 9.5 8.6-10.2 - mg/dL * P ROTEIN, TOTAL 7.4 6.1-8.1 - g/dL * A LBUMIN 4.1 3.6-5.1 - g/dL * G LOBULIN 3.3 1.9-3.7 - g/dL (calc ) * A LBUMIN/GLOBULIN RATIO 1.2 1.0-2.5 - (calc) * B ILIRUBIN, TOTAL 0.3 0.2-1.2 - mg/dL * A LKALINE PHOSPHATASE 139 H 31-125 - U/L * A ST 16 10-35 - U/L * A LT 14 6-29 - U/L * E GFR 62 > OR = 60 - mL/min/1 .73m2 * Bella Arzola 02/26/2025 09: 39:09 AM EDT > pt informed-Rx sentThis lab was reviewed by Bella Arzola on 02/26/2025 at 09:43 AM EDT ?LAB: CBC (INCLUDES DIFF/PLT) (2821)* Value Reference Range W FAUSTO BLOOD CELL COUNT 9.0 3.8-10.8 - Thousan d/uL * R ED BLOOD CELL COUNT 5.18 H 3.80-5.10 - Million/ uL * H EMOGLOBIN 14.4 11.7-15.5 - g/dL * H EMATOCRIT 47.1 H 35.0-45.0 - % * M CV 90.9 80.0-100.0 - fL * M CH 27.8 27.0-33.0 - pg * M CHC 30.6 L 32.0-36.0 - g/dL * R DW 15.0 11.0-15.0 - % * P LATELET COUNT 309 140-400 - Thousand/u L * N EUTROPHILS 67.2 - % * A BSOLUTE NEUTROPHILS 6048 0800-6335 - cells/uL * L YMPHOCYTES 24.2 - % * A BSOLUTE LYMPHOCYTES 2178 850-3900 - cells/uL * M ONOCYTES 6.6 - % * A BSOLUTE MONOCYTES 594 200-950 - cells/uL * E OSINOPHILS 1.2 - % * A BSOLUTE EOSINOPHILS 108 15-500 - cells/uL * B ASOPHILS 0.8 - % * A BSOLUTE BASOPHILS 72 0-200 - cells/uL * M PV 9.9 7.5-12.5 - fL * Bella Arzola 02/26/2025 09: 39:09 AM EDT > pt informed-Rx sentThis lab was reviewed by Bella Arzola on 02/26/2025 at 09:43 AM EDT ?LAB: HEMOGLOBIN A1c (496)* Value Reference Range H EMOGLOBIN A1c 6.7 H <5.7 - % * Bella Arzola 02/26/2025 09: 39:09 AM EDT > pt informed-Rx sentThis lab was reviewed by Bella Arzola on 02/26/2025 at 09:43 AM EDT ?LAB: TSH W/REFLEX TO FT4 (78435)* Value Reference Range T SH W/REFLEX TO FT4 2.11 - mIU/L * Bella Arzola 02/26/2025 09: 39:09 AM EDT > pt informed-Rx sentThis lab was reviewed by Bella Arzola on 02/26/2025 at 09:43 AM EDT Notes: Well Visit, Ages 18 to 65: Care Instructions material was published?? 2.?Type 2 diabetes mellitus without complication, without long-term current use of insulin? Stop Mounjaro SOLUTION, 10 MG/0.5 ML, 10 MG, SUBCUTANEOUSLY, ONCE A WEEK, Notes to Pharmacist: *Please review and pick correct strength-formulation from Medispan options. If intended option is not shown, discontinue and re-order from Quick Search*;?Stop metFORMIN HCl ER Tablet Extended [id number] Hour, 500 MG, TAKE TWO TABLETS BY MOUTH TWICE DAILY;?Start Mounjaro Solution Auto-injector, 12.5 MG/0.5ML, 12.5 mg, Subcutaneous, once a week, 28 days, 2 mL, Refills 0.?LAB: LIPID PANEL, STANDARD (2330)* Value Reference Range T RIGLYCERIDES 106 <150 - mg/dL * C HOLESTEROL, TOTAL 245 H <200 - mg/dL * H DL CHOLESTEROL 57 > OR = 50 - mg/dL * L DL-CHOLESTEROL 166 H - mg/dL (calc) * C HOL/HDLC RATIO 4.3 <5.0 - (calc) * N ON HDL CHOLESTEROL 188 H <130 - mg/dL (calc) * Bella Arzola 02/26/2025 09: 39:09 AM EDT > pt informed-Rx sentThis lab was reviewed by Bella Arzola on 02/26/2025 at 09:43 AM EDT ?LAB: COMPREHENSIVE METABOLIC PANEL (47315)* Value Reference Range G LUCOSE 120 H 65-99 - mg/dL * U JUNIOR NITROGEN (BUN) 22 7-25 - mg/dL * C REATININE 1.09 H 0.50-0.99 - mg/dL * B UN/CREATININE RATIO 20 6-22 - (calc) * S ODIUM 140 135-146 - mmol/L * P OTASSIUM 3.7 3.5-5.3 - mmol/L * C HLORIDE 101 98-110 - mmol/L * C ARBON DIOXIDE 25 20-32 - mmol/L * C ALCIUM 9.5 8.6-10.2 - mg/dL * P ROTEIN, TOTAL 7.4 6.1-8.1 - g/dL * A LBUMIN 4.1 3.6-5.1 - g/dL * G LOBULIN 3.3 1.9-3.7 - g/dL (calc ) * A LBUMIN/GLOBULIN RATIO 1.2 1.0-2.5 - (calc) * B ILIRUBIN, TOTAL 0.3 0.2-1.2 - mg/dL * A LKALINE PHOSPHATASE 139 H 31-125 - U/L * A ST 16 10-35 - U/L * A LT 14 6-29 - U/L * E GFR 62 > OR = 60 - mL/min/1 .73m2 * Bella Arzola 02/26/2025 09: 39:09 AM EDT > pt informed-Rx sentThis lab was reviewed by Bella Arzola on 02/26/2025 at 09:43 AM EDT ?LAB: CBC (INCLUDES DIFF/PLT) (6045)* Value Reference Range W FAUSTO BLOOD CELL COUNT 9.0 3.8-10.8 - Thousan d/uL * R ED BLOOD CELL COUNT 5.18 H 3.80-5.10 - Million/ uL * H EMOGLOBIN 14.4 11.7-15.5 - g/dL * H EMATOCRIT 47.1 H 35.0-45.0 - % * M CV 90.9 80.0-100.0 - fL * M CH 27.8 27.0-33.0 - pg * M CHC 30.6 L 32.0-36.0 - g/dL * R DW 15.0 11.0-15.0 - % * P LATELET COUNT 309 140-400 - Thousand/u L * N EUTROPHILS 67.2 - % * A BSOLUTE NEUTROPHILS 6048 3288-1749 - cells/uL * L YMPHOCYTES 24.2 - % * A BSOLUTE LYMPHOCYTES 2178 850-3900 - cells/uL * M ONOCYTES 6.6 - % * A BSOLUTE MONOCYTES 594 200-950 - cells/uL * E OSINOPHILS 1.2 - % * A BSOLUTE EOSINOPHILS 108 15-500 - cells/uL * B ASOPHILS 0.8 - % * A BSOLUTE BASOPHILS 72 0-200 - cells/uL * M PV 9.9 7.5-12.5 - fL * Bella Arzola 02/26/2025 09: 39:09 AM EDT > pt informed-Rx sentThis lab was reviewed by Bella Arzola on 02/26/2025 at 09:43 AM EDT ?LAB: HEMOGLOBIN A1c (496)* Value Reference Range H EMOGLOBIN A1c 6.7 H <5.7 - % * Bella Arzola 02/26/2025 09: 39:09 AM EDT > pt informed-Rx sentThis lab was reviewed by Bella Arzola on 02/26/2025 at 09:43 AM EDT ?LAB: TSH W/REFLEX TO FT4 (83983)* Value Reference Range T SH W/REFLEX TO FT4 2.11 - mIU/L * Bella Arzola 02/26/2025 09: 39:09 AM EDT > pt informed-Rx sentThis lab was reviewed by Bella Arzola on 02/26/2025 at 09:43 AM EDT ?LAB: Microalbumin (In-House) (Collection Date & Time - 02/23/2025)* Value Reference Range A LB 150mg * C RE 50mg * A :C >300mg * Margo Presley 02/24/20 09:13:56 AM EDT >This lab was reviewed by Abdullahi oDminguez on 02/23/2025 at 12:33 PM EDT Notes: Type 2 Diabetes: Care Instructions material was published??3.?Primary insomnia? Clinical Notes: can continue trazodone PRN??4.?Generalized anxiety disorder? Clinical Notes: continue lexapro??5.?Hypothyroidism (acquired)?LAB: LIPID PANEL, STANDARD (7600)* Value Reference Range T RIGLYCERIDES 106 <150 - mg/dL * C HOLESTEROL, TOTAL 245 H <200 - mg/dL * H DL CHOLESTEROL 57 > OR = 50 - mg/dL * L DL-CHOLESTEROL 166 H - mg/dL (calc) * C HOL/HDLC RATIO 4.3 <5.0 - (calc) * N ON HDL CHOLESTEROL 188 H <130 - mg/dL (calc) * Bella Arzola 02/26/2025 09: 39:09 AM EDT > pt informed-Rx sentThis lab was reviewed by Bella Arzola on 02/26/2025 at 09:43 AM EDT ?LAB: COMPREHENSIVE METABOLIC PANEL (12885)* Value Reference Range G LUCOSE 120 H 65-99 - mg/dL * U JUNIOR NITROGEN (BUN) 22 7-25 - mg/dL * C REATININE 1.09 H 0.50-0.99 - mg/dL * B UN/CREATININE RATIO 20 6-22 - (calc) * S ODIUM 140 135-146 - mmol/L * P OTASSIUM 3.7 3.5-5.3 - mmol/L * C HLORIDE 101 98-110 - mmol/L * C ARBON DIOXIDE 25 20-32 - mmol/L * C ALCIUM 9.5 8.6-10.2 - mg/dL * P ROTEIN, TOTAL 7.4 6.1-8.1 - g/dL * A LBUMIN 4.1 3.6-5.1 - g/dL * G LOBULIN 3.3 1.9-3.7 - g/dL (calc ) * A LBUMIN/GLOBULIN RATIO 1.2 1.0-2.5 - (calc) * B ILIRUBIN, TOTAL 0.3 0.2-1.2 - mg/dL * A LKALINE PHOSPHATASE 139 H 31-125 - U/L * A ST 16 10-35 - U/L * A LT 14 6-29 - U/L * E GFR 62 > OR = 60 - mL/min/1 .73m2 * Bella Arzola 02/26/2025 09: 39:09 AM EDT > pt informed-Rx sentThis lab was reviewed by Bella Arzola on 02/26/2025 at 09:43 AM EDT ?LAB: CBC (INCLUDES DIFF/PLT) (0645)* Value Reference Range W FAUSTO BLOOD CELL COUNT 9.0 3.8-10.8 - Thousan d/uL * R ED BLOOD CELL COUNT 5.18 H 3.80-5.10 - Million/ uL * H EMOGLOBIN 14.4 11.7-15.5 - g/dL * H EMATOCRIT 47.1 H 35.0-45.0 - % * M CV 90.9 80.0-100.0 - fL * M CH 27.8 27.0-33.0 - pg * M CHC 30.6 L 32.0-36.0 - g/dL * R DW 15.0 11.0-15.0 - % * P LATELET COUNT 309 140-400 - Thousand/u L * N EUTROPHILS 67.2 - % * A BSOLUTE NEUTROPHILS 6048 9371-4383 - cells/uL * L YMPHOCYTES 24.2 - % * A BSOLUTE LYMPHOCYTES 2178 850-3900 - cells/uL * M ONOCYTES 6.6 - % * A BSOLUTE MONOCYTES 594 200-950 - cells/uL * E OSINOPHILS 1.2 - % * A BS[facility] EOSINOPHILS 108 15-500 - cells/uL * B ASOPHILS 0.8 - % * A BS[facility] BASOPHILS 72 0-200 - cells/uL * M PV 9.9 7.5-12.5 - fL * Dariusz Bella M 02/26/2025 09: 39:09 AM EDT > pt informed-Rx sentThis lab was reviewed by Bella Arzola on 02/26/2025 at 09:43 AM EDT ?LAB: HEMOGLOBIN A1c (496)* Value Reference Range H EMOGLOBIN A1c 6.7 H <5.7 - % * Bella Arzola 02/26/2025 09: 39:09 AM EDT > pt informed-Rx sentThis lab was reviewed by Bella Arzola on 02/26/2025 at 09:43 AM EDT ?LAB: TSH W/REFLEX TO FT4 (31949)* Value Reference Range T SH W/REFLEX TO FT4 2.11 - mIU/L * Bella Arzola 02/26/2025 09: 39:09 AM EDT > pt informed-Rx sentThis lab was reviewed by Bella Arzola on 02/26/2025 at 09:43 AM EDT 6.?Primary hypertension?LAB: LIPID PANEL, STANDARD (7600)* Value Reference Range T RIGLYCERIDES 106 <150 - mg/dL * C HOLESTEROL, TOTAL 245 H <200 - mg/dL * H DL CHOLESTEROL 57 > OR = 50 - mg/dL * L DL-CHOLESTEROL 166 H - mg/dL (calc) * C HOL/HDLC RATIO 4.3 <5.0 - (calc) * N ON HDL CHOLESTEROL 188 H <130 - mg/dL (calc) * Bella Arzola 02/26/2025 09: 39:09 AM EDT > pt informed-Rx sentThis lab was reviewed by Bella Arzola on 02/26/2025 at 09:43 AM EDT ?LAB: COMPREHENSIVE METABOLIC PANEL (83913)* Value Reference Range G LUCOSE 120 H 65-99 - mg/dL * U JUNIOR NITROGEN (BUN) 22 7-25 - mg/dL * C REATININE 1.09 H 0.50-0.99 - mg/dL * B UN/CREATININE RATIO 20 6-22 - (calc) * S ODIUM 140 135-146 - mmol/L * P OTASSIUM 3.7 3.5-5.3 - mmol/L * C HLORIDE 101 98-110 - mmol/L * C ARBON DIOXIDE 25 20-32 - mmol/L * C ALCIUM 9.5 8.6-10.2 - mg/dL * P ROTEIN, TOTAL 7.4 6.1-8.1 - g/dL * A LBUMIN 4.1 3.6-5.1 - g/dL * G LOBULIN 3.3 1.9-3.7 - g/dL (calc ) * A LBUMIN/GLOBULIN RATIO 1.2 1.0-2.5 - (calc) * B ILIRUBIN, TOTAL 0.3 0.2-1.2 - mg/dL * A LKALINE PHOSPHATASE 139 H 31-125 - U/L * A ST 16 10-35 - U/L * A LT 14 6-29 - U/L * E GFR 62 > OR = 60 - mL/min/1 .73m2 * Bella Arzola 02/26/2025 09: 39:09 AM EDT > pt informed-Rx sentThis lab was reviewed by Bella Arzola on 02/26/2025 at 09:43 AM EDT ?LAB: CBC (INCLUDES DIFF/PLT) (4283)* Value Reference Range W FAUSTO BLOOD CELL COUNT 9.0 3.8-10.8 - Thousan d/uL * R ED BLOOD CELL COUNT 5.18 H 3.80-5.10 - Million/ uL * H EMOGLOBIN 14.4 11.7-15.5 - g/dL * H EMATOCRIT 47.1 H 35.0-45.0 - % * M CV 90.9 80.0-100.0 - fL * M CH 27.8 27.0-33.0 - pg * M CHC 30.6 L 32.0-36.0 - g/dL * R DW 15.0 11.0-15.0 - % * P LATELET COUNT 309 140-400 - Thousand/u L * N EUTROPHILS 67.2 - % * A BSOLUTE NEUTROPHILS 6048 0182-4167 - cells/uL * L YMPHOCYTES 24.2 - % * A BSOLUTE LYMPHOCYTES 2178 850-3900 - cells/uL * M ONOCYTES 6.6 - % * A BSOLUTE MONOCYTES 594 200-950 - cells/uL * E OSINOPHILS 1.2 - % * A BSOLUTE EOSINOPHILS 108 15-500 - cells/uL * B ASOPHILS 0.8 - % * A BSOLUTE BASOPHILS 72 0-200 - cells/uL * M PV 9.9 7.5-12.5 - fL * Bella Arzola 02/26/2025 09: 39:09 AM EDT > pt informed-Rx sentThis lab was reviewed by Bella Arzola on 02/26/2025 at 09:43 AM EDT ?LAB: HEMOGLOBIN A1c (496)* Value Reference Range H EMOGLOBIN A1c 6.7 H <5.7 - % * Bella Arzola 02/26/2025 09: 39:09 AM EDT > pt informed-Rx sentThis lab was reviewed by Bella Arzola on 02/26/2025 at 09:43 AM EDT ?LAB: TSH W/REFLEX TO FT4 (30450)* Value Reference Range T SH W/REFLEX TO FT4 2.11 - mIU/L * Bella Arzola 02/26/2025 09: 39:09 AM EDT > pt informed-Rx sentThis lab was reviewed by Bella Arzola on 02/26/2025 at 09:43 AM EDT Clinical Notes: well controlled??7.?Inattention? Start Wellbutrin XL Tablet Extended Release 24 Hour, 150 MG, 1 tablet in the morning, Orally, Once a day, 30 days, 30, Refills 1.?? Clinical Notes: trial of wellbutrin??8.?Visit for screening mammogram?Imaging: Mammogram: Screening* Smith Parker 03/16/2025 0 9:29:58 AM EDT >This DI was reviewed by Eduardo Givens on 03/16/2025 at 12:44 PM EDT * 9.?Colon cancer screening? Referral To:[facility] cologuard ?Reason:Please send screening kit * Immunizations: Boostrix : .5 mL (Route: Intramuscular) given by ANN Yusfu on Left Deltoid * Procedure Codes: 8 2043 MICROALBUMIN, URINE, Modifiers: QW , 19405 Boostrix, 74800 immunization administration through 18 years of age via any route of administration. * Preventive Medicine: Immunizations: I nfluenza . T dap D one today in office. Screening / Special Tests: M ammogram n eeds to be scheduled. P ap Smear?no prior, will consider. C olonoscopy C ologuard recommended. L dayanara Cancer Screening?will be eligible at age 50 years. * Follow Up: 6 Weeks (Reason: medication change) * * Sign off status: Completed true * Provider: YG Michael Date: 02/23/2025 Generated for Anjle lindsay/Alfredo/Morganitting on: 03/19/2025 08:47 AM EDT History and Physical Notes * HPI (History of Present Illness) Category Sub-Category Detail Notes Category Not es Diabetes ophthalmology eval Within the past year, due for FU gen 49-year-old female presents today for annual exam and chronic disease FU. No acute concerns. DM, doesn't check her blood sugars at home but doesn't feel bad. Denies CP, SOA, ABD pain, N/V/D, constipation. Does have occasional belching. States she takes all medication as prescribed but has been out of Mounjaro for 3 weeks. Has lowered dose of metformin due to loose stool Examination Category Sub-Category Detail Notes Category Not es General Examination HEENT: pharynx and tonsils normal, TM's normal Heart: Regular Rate and Rhy thm, no murmur, rubs or gallops Lungs: clear to auscultatio n,, no wheezes or crackles, Abdomen: soft, NT/ND, BS pres ent Extremities: pulses 2 plus bilate rally, Skin: normal, no rash, Neurologic Exam: gait normal,, unrema rkable, Oral cavity: Moist membranes neck supple,, no thyromeg molly,, no lymphadenopathy, General Pleasant and [place] tive, NAD on RA, Psych Normal Mood/Affect Consultation Request Notes Referral Date Referring Provider Referred Provider Not es 02/23/2025 Abdullahi Dominguez, [facility] Please send screening kit
--- OUTSIDE RECORDS SUMMARY | 2025-03-16 08:44 | XMS_ITS ---
Author Organization [facility] Address [address] [place] [address] Care Team Providers Care Community Affairs Director Name Role Phone Renetta Dominguez Primary Care Provider [phone] RENETTA DOMINGUEZ Unavailable Unavaila ble REASON FOR VISIT order Encounters Encounter Location Date Provider Diagnosis [address] [address] 03/16/2025 Renetta Dominguez Abnormal mammogram of left breast R92.8 Assessments Encounter Date Diagnosis (ICD Code) Assessment Notes Treatment Notes Treatment Clinical Notes Section Notes 03/16/2025 Abnormal mammogram of left breast (ICD-10 - R92.8) Plan Of Treatment Pending Test Test Name Order Date Ultrasound : Breast, Left 03/16/2025 Next Appt Details Provider Name:Renetta Valerio ce, 05/20/2025 08:30:00 AM, [address], [address], [place], [address], Progress Notes * Jose COHNhDOB:1975 (49 yo F)Acc No.[id number]:03/16/2025 Patient: Nori PLUMMER :1975 A ge:49 Y S ex:Female Address:[address] [place], [address] Subjective: * Chief Complaints: * O rder * Medical History: * Surgical History: * Hospitalization/Major Diagno stic Procedure: * Medications: Objective: * Vitals: * Physical Examination: Assessment: * Assessment: 1. A bnormal mammogram of left breast - R92.8 (Primary) Plan: * Treatment: * * Procedure Codes: * true * Date: Generated for Anjel lindsay/Alfredo/Morganitting on: 0 03/19/2025 08:48 AM EDT
--- NOTE | 2025-03-19 08:48 | US_ITS ---
PROCEDURE INFORMATION: Exam: US Left Breast, Complete Exam date and time: 03/19/2025 8:40 AM Age: 49 years old Clinical indication: Callback for findings in the left breast on mammography. TECHNIQUE: Imaging protocol: Complete ultrasound of all four quadrants of the left breast and the retroareolar regions, including ultrasound of the axilla when performed. COMPARISON: MG MM DIG SCREENING MAMM BI W/CAD 03/10/2025 8:05 AM FINDINGS: ULTRASOUND: Breast ultrasound findings: Complete scanning of the left breast is performed. In the 2 o'clock axis, 10 cm from the nipple, at superficial depth, there is an oval circumscribed 0.3 x 0.3 x 0.3 cm hypoechoic mass/complicated cyst just beneath the skin surface that may represent fat necrosis. This does not correlate with respect to size and morphology to the mammogram finding from 03/10/2025. There is no shadowing or distortion. In the left axillary tail region, there are 2 benign-appearing lymph nodes, measuring up to 1.6 cm, and these correlate to the mammogram findings. There is no lymphadenopathy. No suspicious masses or other abnormalities are seen throughout the remainder of the left breast. IMPRESSION: Probably benign oil cyst in the left breast at 2 o'clock, 10 cm from the nipple. A follow-up left breast mammogram and ultrasound are recommended for short-term follow-up of the findings. ASSESSMENT: BI-RADS Category 3: Probably benign.
--- OUTSIDE RECORDS SUMMARY | 2025-03-19 08:48 | XMS_ITS | Patient Health Record ---
Author Organization [facility] Address [address] [facility] [address] [place] [address] Care Team Providers Care Surveillance Investigator Name Role Phone Abdullahi Dominguez Primary Care Provider [phone] ABDULLAHI DOMINGUEZ Unavailable Unavaila ble Migration, Provider Unavailable Unavailable Allergies No Known Allergies Results Component Value Reference Range Notes Microalbumin (In-House) Reviewed date:02/23/2025 12:33:36 PM Interpretation: Performing Lab: Notes/Report: ALB 150mg CRE 50mg A:C >300mg Mammogram: Screening Reviewed date:03/16/2025 12:44:55 PM Interpretation: Performing Lab: Notes/Report: LIPID PANEL, STANDARD (7600) Reviewed date:02/26/2025 09:43:57 AM Interpretation: Performing Lab:[facility], [facility] [place] Notes/Report: NON-FASTING; NON-FASTING; NON-FASTING; NON-FASTING; [...] LDL-C. Almas SS et al. ADRIANA. 2013;310(19): 5600-8147 (http://education.GnamGnam.Flipxing.com/faq/HMU073) CHOL/HDLC RATIO 4.3 <5.0 (calc) NON HDL CHOLESTEROL 188 <130 mg/dL (calc) For patients with diabetes plus 1 major ASCVD risk factor, treating to a non-HDL-C goal of <100 mg/dL (LDL-C of <70 mg/dL) is considered a therapeutic option. COMPREHENSIVE METABOLIC PANE L (50422) Reviewed date:02/26/2025 09:43:57 AM Interpretation: Performing Lab:JUAN PABLO [employer] [facility] James[facility] CYBRA[address] CedenoL[address] [place] Notes/Report: NON-FASTING; NON-FASTING; NON-FASTING; NON-FASTING; [...] Reviewed date:02/26/2025 09:43:57 AM Interpretation: Performing Lab:JUAN PABLO [facility] [facility] [place] Notes/Report: NON-FASTING; NON-FASTING; NON-FASTING; NON-FASTING; [...] MPV 9.9 7.5-12.5 fL ABSOLUTE NEUTROPHILS 6048 1713-5374 cells/uL ABSOLUTE LYMPHOCYTES 2178 850-3900 cells/uL ABSOLUTE MONOCYTES 594 200-950 cells/uL ABSOLUTE EOSINOPHILS 108 15-500 cells/uL ABSOLUTE BASOPHILS 72 0-200 cells/uL NEUTROPHILS 67.2 LYMPHOCYTES 24.2 MONOCYTES 6.6 EOSINOPHILS 1.2 BASOPHILS 0.8 HEMOGLOBIN A1c (496) Reviewed date:02/26/2025 09:43:57 AM Interpretation: Performing Lab:CB, [facility] [id number] [facility] [place] Notes/Report: NON-FASTING; NON-FASTING; NON-FASTING; NON-FASTING; [...] diabetes for children. TSH W/REFLEX TO FT4 (05258) Reviewed date:02/26/2025 09:43:57 AM Interpretation: Performing Lab:JUAN PABLO [employer] [place], [place] LynkKbyuML[address] [place] Notes/Report: NON-FASTING; NON-FASTING; NON-FASTING; NON-FASTING; NON-FAST FASTING:YES FASTING: YES TSH W/REFLEX TO FT4 2.11 Reference Range > or = 20 Years 0.40-4.50 Ranges First trimester 0.26-2.66 Second trimester 0.55-2.73 Third trimester 0.43-2.91 Rapid Covid/Flu A-B Combo Reviewed date:07/27/2024 11:37:32 AM Interpretation: Performing Lab: Notes/Report: Rapid Covid neg Flu A neg Flu B neg TSH W/REFLEX TO FT4 (83141) Reviewed date:04/30/2024 03:43:21 PM Interpretation: Performing Lab:JUAN PABLO [facility] [place], [place] LynkZdmjQH[address] [place] Notes/Report: NON-FASTING; NON-FASTING; NON-FASTING; NON-FASTING; NON-FAST FASTING:YES FASTING: YES NON-FASTING; NON-FASTING; NON-FASTING; NON-FASTING; NON-FAST FASTING:YES FASTING: YES TSH W/REFLEX TO FT4 4.60 Reference Range > or = 20 Years 0.40-4.50 Ranges First trimester 0.26-2.66 Second trimester 0.55-2.73 Third trimester 0.43-2.91 T4, FREE 1.3 0.8-1.8 ng/dL HEMOGLOBIN A1c (496) Reviewed date:04/30/2024 03:43:21 PM Interpretation: Performing Lab:JUAN PABLO [facility] [place], [place] LynkVnkxAP[address] [place] Notes/Report: NON-FASTING; NON-FASTING; NON-FASTING; NON-FASTING; [...] change in test platforms from the Tovar Education Counselor to the Misty christin c503 may have shifted HbA1c results compared to historical results. Based on laboratory validation testing conducted at [employer], the Misty platform relative to the Tovar platform had an average increase in HbA1c value of < or = 0.3%. This difference is within accepted variability established by the National Glycohemoglobin Standardization Program. Note that not all individuals will have had a shift in their results and direct comparisons between historical and current results for testing conducted on different platforms is not recommended. CBC (INCLUDES DIFF/PLT) (639 9) Reviewed date:04/30/2024 03:43:20 PM Interpretation: Performing Lab:JUAN PABLO [facility] [address] [facility] HospitalKpdzEP[address] [place] Notes/Report: NON-FASTING; NON-FASTING; NON-FASTING; NON-FASTING; NON-FAST FASTING:YES FASTING: YES WHITE BLOOD CELL COUNT 9.8 3.8-10.8 Thousand/ uL RED BLOOD CELL COUNT 4.51 3.80-5.10 Million/uL HEMOGLOBIN 12.9 11.7-15.5 g/dL HEMATOCRIT 41.3 35.0-45.0 % MCV 91.6 80.0-100.0 fL MCH 28.6 27.0-33.0 pg MCHC 31.2 32.0-36.0 g/dL RDW 15.4 11.0-15.0 % PLATELET COUNT 371 140-400 Thousand/uL MPV 9.4 7.5-12.5 fL ABSOLUTE NEUTROPHILS 6301 9823-3941 cells/uL ABSOLUTE LYMPHOCYTES 2656 850-3900 cells/uL ABSOLUTE MONOCYTES 568 200-950 cells/uL ABSOLUTE EOSINOPHILS 167 15-500 cells/uL ABSOLUTE BASOPHILS 108 0-200 cells/uL NEUTROPHILS 64.3 LYMPHOCYTES 27.1 MONOCYTES 5.8 EOSINOPHILS 1.7 BASOPHILS 1.1 COMPREHENSIVE METABOLIC PANE L (46285) Reviewed date:04/30/2024 03:43:20 PM Interpretation: Performing Lab:JUAN PABLO [employer] Iqvg1483 [facility] HospitalSjyzUM[address] Terry yL Notes/Report: NON-FASTING; NON-FASTING; NON-FASTING; NON-FASTING; NON-FAST FASTING:YES [...] 15 10-35 U/L ALT 14 6-29 U/L LIPID PANEL, STANDARD (7600) Reviewed date:04/30/2024 03:43:20 PM Interpretation: Performing Lab:JUAN PABLO [employer] [facility] [address] [facility], [facility] HospitalSuwpDZ[address] [place] Notes/Report: NON-FASTING; NON-FASTING; NON-FASTING; NON-FASTING; NON-FAST FASTING:YES FASTING: YES CHOLESTEROL, TOTAL 236 <200 mg/dL HDL CHOLESTEROL 55 > OR = 50 mg/dL TRIGLYCERIDES 179 <150 mg/dL LDL-CHOLESTEROL 150 Reference range: <100 Desirable range <100 mg/dL for primary prevention; <70 mg/dL for patients with CHD or diabetic patients with > or = 2 CHD risk factors. LDL-C is now calculated using the Alams-Hatch calculation, which is a validated novel method providing better accuracy than the Friedewald equation in the estimation of LDL-C. Almas SS et al. ADRIANA. 2013;310(25): 5048-6196 (http://education.Enflick/faq/ZNR932) CHOL/HDLC RATIO 4.3 <5.0 (calc) NON HDL CHOLESTEROL 181 <130 mg/dL (calc) For patients with diabetes plus 1 major ASCVD risk factor, treating to a non-HDL-C goal of <100 mg/dL (LDL-C of <70 mg/dL) is considered a therapeutic option. Rapid Strep Reviewed date:07/27/2024 11:34:42 AM Interpretation:Positive Performing Lab: Notes/Report: Positive Reason For Referral Reason Please send screenin shaji kit Diagnosis 1 Colon cancer screeni neftali (Z12.11) Referral Organization [facility] Referring Provider First Name Abdullahi Referring Provider Last Name Angelica Referring Provider Speciality [facility] Referred Provider Carlton britt Referral Priority Routine [...] review and pick correct strength-formula tion from [employer] options. If intended option is not shown, [...] Status Risk Notes Problem Generalized anxiety disorder (22038926) Generalized anxiety disorder (F41.1) Active confirmed Problem Primary insomnia (0209970) Primary insomnia (F51.01) Active confirmed Problem Body mass index 40+ - severely obese (300655626) BMI 45.0-49.9, adult (Z68.42) Active confirmed Problem Hypothyroidism (98201735) Hypothyroidism (acquired) (E03.9) Active confirmed Problem Morbid obesity (902900038) Obesity, morbid, BMI 50 or higher (E66.01) Active confirmed Problem Daytime somnolence (797808229792) Daytime somnolence (R40.0) Active confirmed Problem Inattention (94349480) Inattention (R41.840) Active confirmed Problem Type II diabetes mellitus without complication (984235316) Type 2 diabetes mellitus without complication, without long-term current use of insulin (E11.9) Active confirmed Problem Primary hypertension (02581825) Primary hypertension (I10) Active confirmed Vital Signs Heart Rate 80 /min 02/23/2025 Temperature 97.7 degrees Fahrenheit 02/23/2025 Blood pressure diastolic 88 mm Hg 02/23/2025 Height 5ft 10in in 02/23/2025 Blood pressure systolic 120 mm Hg 02/23/2025 Weight 335.6 lbs 02/23/2025 BMI 48.15 kg/m2 02/23/2025 Encounters Encounter Location Date Provider Diagnosis [facility] [address] [facility] [place] [address] 12/05/2024 Provider Migration Hordeolum externum left lower eyelid H00.015 ; Type 2 diabetes mellitus without complication, without long-term current use of insulin E11.9 and Primary insomnia F51.01 [facility] [address] [facility] [place] [address] 04/28/2024 Abdullahi Angelica Hypothyroidism (acquired) E03.9 ; Type 2 diabetes mellitus without complication, without long-term current use of insulin E11.9 ; Primary hypertension I10 ; Generalized anxiety disorder F41.1 ; Primary insomnia F51.01 and Obesity, morbid, BMI 50 or higher E66.01 [facility] [address] [facility] [place], [place] [address] 07/27/2024 Abdullahiceci Dominguez Chills (without feve r) R68.83 ; Strep sore throat J02.0 ; Type 2 diabetes mellitus without complication, without long-term current use of insulin E11.9 and Exposure to COVID-19 virus Z20.822 [facility] [address] [facility] [place] [address] 11/03/2024 [facility] Hordeolum externum left lower eyelid H00.015 ; Type 2 diabetes mellitus without complication, without long-term current use of insulin E11.9 and Primary insomnia F51.01 [facility] [address] [facility] [place], [place] [address] 02/23/2025 Abdullahi Dominguez Routine medical exam Z00.00 ; Type 2 diabetes mellitus without complication, without long-term current use of insulin E11.9 ; Primary insomnia F51.01 ; Generalized anxiety disorder F41.1 ; Hypothyroidism (acquired) E03.9 ; Primary hypertension I10 ; Inattention R41.840 ; Encounter for immunization Z23 ; Visit for screening mammogram Z12.31 and Colon cancer screening Z12.11 [facility] [address] [facility] [place], [place] [address] 03/31/2024 Abdullahi Angelica [facility] [address] [place], [place] [address] 04/29/2024 Abdullahi Angelica [facility] [address] [place] [address] 12/17/2024 Abdullahi Angelica [facility] [address] [facility] [address] [place] [address] 02/26/2025 Abdullahi Dominguez Primary hypertension I10 [facility] [address] [facility] [address] [place] [address] 03/16/2025 Abdullahiceci FernandezAngelica [facility] [address] [place] [address] 03/16/2025 Abdullahi Dominguez Abnormal mammogram o f left breast R92.8 Assessments Encounter Date Diagnosis (ICD Code) Assessment Notes Treatment Notes Treatment Clinical Notes Section Notes 02/26/2025 Primary hypertension (ICD-10 - I10) 03/16/2025 Abnormal mammogram of left breast (ICD-10 - R92.8) 11/03/2024 Hordeolum externum left lower eyelid (ICD-10 - H00.015) Rec start topical antibiotics as noted, warm compresses at least TID, return precautions reviewed 11/03/2024 Type 2 diabetes mellitus without complication, without long-term current use of insulin (ICD-10 - E11.9) 12/05/2024 Hordeolum externum left lower eyelid (ICD-10 [...] 2 Diabetes: Care Instructions material was published 04/28/2024 Hypothyroidism (acquired) (ICD-10 - E03.9) continue replacement, overdue for monitoring labs 04/28/2024 Type 2 diabetes mellitus without complication, without long-term current use of insulin (ICD-10 - E11.9) goal A1C < 7. Not monitoring glucose at home. Agrees to labs today and pending results, consider change from Ozempic to Mounjaro. Encouraged compliance with CC diet and more regular exercise 07/27/2024 Chills (without fever) (ICD-10 - R68.83) [...] again in 4 weeks to repeat labs. 04/28/2024 Primary hypertension (ICD-10 - I10) tolerating losartan, improved BP today 02/23/2025 Primary insomnia (ICD-10 - F51.01) can continue trazodone PRN 11/03/2024 Primary insomnia (ICD-10 - F51.01) 12/05/2024 Primary insomnia (ICD-10 - F51.01) 02/23/2025 Generalized anxiety disorder (ICD-10 - F41.1) [...] Order Date Ultrasound : Breast, Left 03/16/2025 Mammogram : Bilateral 10/29/2022 M-Erythrocyte Sedimentation Rate 023 M-Comprehensive Metabolic Panel 10/29/19 23 M-Hemoglobin A1C 10/29/2022 M-Uric Acid 10/29/2022 M-Lipid Panel 10/29/2022 M-Thyroid Stimulating Hormone 10/29/2022 M-RA Latex Turbid. 10/29/2022 Next Appt Details Provider Name:Abdullahi Valerio ce, 05/20/2025 08:30:00 AM, [address] [facility], [address], [place], [address], Insurance Providers Payer Name Payer Address Payer Phone Subscriber Number Group Number Insured Name Patient Relationship to Insured Coverage Start Date Coverage End Date [facility] [address] [place] [address] [id number] Nori Cohn Self - patient is the insured Medical (General) History Medical History History ICD Code type II diabetes Hypothyroidism anxiety hypertension Obesity Surgical History Surgery Date(Month/Year) leg infection 07/2022 Oral 2021 Hospitalization History Reason Date(Month/Year) [facility] 07/2022
== END 2025-03-19 23:59 | disposition home or self-care (01) ==
LOC: RAD 08:46
PROVIDERS: PCP Nurse Practitioner Family; Visit Provider Nurse Practitioner Family
DX: N63.21 Unspecified lump in the left breast, upper outer quadrant (principal); R92.8 Other abnormal and inconclusive findings on diagnostic imaging of breast
CPT/HCPCS: 76641